=== PATIENT | male | born 1960 | race Hispanic/Latino ===

== ENCOUNTER 2018-12-07 10:29 | Emergency (ER) | payer MEDICAID ==
[2018-12-07] MEDS ORDERED: CEPHALEXIN 250 MG CAP ONE (11:57)
[2018-12-07] MEDS ORDERED: TETANUS & DIPHTHERIA TOX,ADULT 0.5 ML VIAL ONE (11:57)
--- NOTE | 2018-12-07 12:08 | RAD REPORT ---
EXAM DESCRIPTION: RAD - Hand Right 3 View - 12/07/2018 11:57 am CLINICAL HISTORY: possible bite;Pain COMPARISON: No comparisons FINDINGS: No fracture, dislocation or radiopaque foreign body seen. . Mild soft tissue swelling abou t the fingers. Scattered arthritic changes are seen.
--- NOTE | 2018-12-07 12:09 | RAD REPORT ---
EXAM DESCRIPTION: RAD - Knee Left 3 View - 12/07/2018 11:57 am CLINICAL HISTORY: PAIN Fall, knee pain COMPARISON: CHEST SINGLE VIEW dated 09/27/2008 FINDINGS: Chronic deformity of the patella is seen presumably related to remote trauma. This or some what limits assessment of the patella. Within this limitation, no acute fractures seen. No suprapatel lar joint effusion. If pain persists or progresses, MR imaging would be suggested.
--- NOTE | 2018-12-07 12:17 | EDPHYS ---
Physician Documentation [facility] Name: Justyna Siegel Age: 58 yrs Sex: Male : 1960 Arrival Date: 12/07/2018 Time: 10:34 Bed 13 Private MD: None, None ED Physician Andrei Ayala HPI: 12/07 12:00 This 58 yrs old Male presents to ER via Ambulatory with complaints of Fall snw Injury. 12:00 Details of fall: The patient fell from an upright position, knee gave out when he stood snw abruptly post something biting him on the left middle fingertip. Onset: The symptoms/episode began/occurred suddenly, 4 day(s) ago, and became persistent. Severity of symptoms: At their worst the symptoms were very mild, mild. It is unknown whether or not the patient has had similar symptoms in the past. It is unknown whether or not the patient has recently seen a physician. pt states when left knee gave out he fell against the picnic table. Historical: - Allergies: 10:51 No Known Allergies; ph - Home Meds: 10:51 None [Active]; ph - PSHx: 10:51 abdominal sx; Bowel resection; Knee surgery; ph - Immunization history:: Adult Immunizations unknown, Adult Immunizations up to date. - Social history:: Smoking status: Patient/guardian denies using tobacco, Patient uses street drugs, marijuana, Smoking status: Patient/guardian denies using tobacco. - Ebola Screening: : No symptoms or risks identified at this time. ROS: 11:58 Constitutional: Negative for fever, chills, and weight loss, Eyes: Negative for injury, snw pain, redness, and discharge, ENT: Negative for injury, pain, and discharge, Neck: Negative for injury, pain, and swelling, Cardiovascular: Negative for chest pain, palpitations, and edema, Respiratory: Negative for shortness of breath, cough, wheezing, and pleuritic chest pain, Back: Negative for injury and pain, : Negative for injury, bleeding, discharge, and swelling, Neuro: Negative for headache, weakness, numbness, tingling, and seizure, Psych: Negative for depression, anxiety, suicide ideation, homicidal ideation, and hallucinations. 11:58 Abdomen/GI: Positive for "lump at left upper abd". 11:58 MS/extremity: Positive for left knee pain and tendency to give out. 11:58 Skin: Positive for puncture, pt states [place] him on the right [place], requests tetanus immunization. Exam: 11:54 Constitutional: This is a well developed, well nourished patient who is awake, alert, snw and in no acute distress. Head/Face: Normocephalic, atraumatic. 11:54 Neck: Trachea midline, no thyromegaly or masses palpated, and no cervical lymphadenopathy. Supple, full range of motion without nuchal rigidity, or vertebral point tenderness. No Meningismus. Chest/axilla: Normal chest wall appearance and motion. Nontender with no deformity. No lesions are appreciated. Cardiovascular: Regular rate and rhythm with a normal S1 and S2. No gallops, murmurs, or rubs. Normal PMI, no JVD. No pulse deficits. Respiratory: Lungs have equal breath sounds bilaterally, clear to auscultation and percussion. No rales, rhonchi or wheezes noted. No increased work of breathing, no retractions or nasal flaring. 11:54 Back: No spinal tenderness. No costovertebral tenderness. Full range of motion. 11:54 Neuro: Awake and alert, GCS 15, oriented to person, place, time, and situation. Cranial nerves II-XII grossly intact. Motor strength 5/5 in all extremities. Sensory grossly intact. Cerebellar exam normal. Normal gait. 11:54 Eyes: Sclera: icterus. 11:54 Abdomen/GI: Inspection: scar(s), are noted in the left upper quadrant and right lower quadrant, Bowel sounds: normal, Palpation: multiple + easily reducible hernias across abdomen, no tenderness, no noted external ecchymosis or injury. 11:54 Musculoskeletal/extremity: Extremities: grossly normal except: noted in the palmar aspect of distal phalanx of right middle finger: bite, contusion, puncture, swelling, noted in the left knee: contusion, midline scarring, pt states it gives out, no noted injury, ROM: no acute changes, Circulation is intact in all extremities. 11:54 Skin: Appearance: Color: jaundiced, Temperature: normal temperature, Moisture: normal moisture. Vital Signs: 10:49 BP 163 / 78; Pulse 66; Resp 18; Temp 97.9; Pulse Ox 100% on R/A; Weight 52.62 kg; ph Height 5 ft. 2 in. (157.48 cm); Pain 5/10; 11:46 BP 110 / 90; Pulse 70; Resp 16; Pulse Ox 99% on R/A; aj 12:35 BP 118 / 82; Pulse 67; Resp 18; Temp 97.8; Pulse Ox 99% on R/A; ph 10:49 Body Mass Index 21.22 (52.62 kg, 157.48 cm) ph MDM: 10:59 Patient medically screened. snw 15:17 Data reviewed: vital signs, nurses notes. Data interpreted: Pulse oximetry: on room air snw is 99 %. Interpretation: normal. Counseling: I had a detailed discussion with the patient and/or guardian regarding: the historical points, exam findings, and any diagnostic results supporting the discharge/admit diagnosis, the presence of at least one elevated blood pressure reading (>120/80) during this emergency department visit, lab results, radiology results, the need for outpatient follow up, to return to the emergency department if symptoms worsen or persist or if there are any questions or concerns that arise at home. Special discussion: I have referred the patient to see his PCP for further evaluation of high blood pressure. Based on the history and exam findings, there is no indication for further emergent testing or inpatient evaluation. I discussed with the patient/guardian the need to see the primary care provider for further evaluation of the symptoms. 12/07 11:35 Order name: Hand Right 3 View XRAY; Complete Time: 12:12 snw 12/07 11:35 Order name: Knee Left 3 View XRAY; Complete Time: 12:12 snw Administered Medications: 11:45 Drug: Tetanus-Diphtheria Toxoid Adult 0.5 ml {Registered Nurse Practitioner: [employer]. Exp: aj 08/19/2020. Lot #: [id number]. } Route: IM; Site: right deltoid; 11:46 Drug: KeFLEX 500 mg Route: PO; aj Disposition: 19:01 Co-signature as Attending Physician, Andrei Ayala MD I agree with the assessment and kdr plan of care. Disposition: 12/07/18 12:16 Discharged to Home. Impression: Osteoarthritis of knee, Puncture wound without foreign body of finger without damage to nail. - Condition is Stable. - Discharge Instructions: Arthritis, Hernia, Adult, Fall Prevention in the Home, Puncture Wound, VIS, Tetanus, Diphtheria (Td) - CDC, Cryotherapy, Heat Therapy. - Prescriptions for Keflex 500 mg Oral Capsule - take 1 capsule by ORAL route every 8 hours for 10 days; 30 capsule. Diclofenac Sodium 75 mg Oral Tablet Sustained Release - take 1 tablet by ORAL route 2 times per day; 30 tablet. - Medication Reconciliation Form, Thank You Letter, Antibiotic Education, Prescription Opioid Use form. - Follow up: Private Physician; When: 2 - 3 days; Reason: Recheck today's complaints, Continuance of care, Re-evaluation by your physician. Follow up: Emergency Department; When: As needed; Reason: Worsening of condition. Signatures: Dispatcher [employer] Iliana Edmond, DARIANA RN Andrei Ryan MD MD [facility] Ofelia Woodward, CONSTRUCTION PROJECT MGR-C CONSTRUCTION PROJECT MGR-Csnw Lupe De La Paz RN RN ph Corrections: (The following items were deleted from the chart) 12:36 12:16 12/07/2018 12:16 Discharged to Home. Impression: Osteoarthritis of knee; Puncture ph wound without foreign body of finger without damage to nail. Condition is Stable. Forms are Medication Reconciliation Form, Thank You Letter, Antibiotic Education, Prescription Opioid Use. Follow up: Private Physician; When: 2 - 3 days; Reason: Recheck today's complaints, Continuance of care, Re-evaluation by your physician. Follow up: Emergency Department; When: As needed; Reason: Worsening of condition. snw
--- NOTE | 2018-12-07 12:17 | ER ---
Nurse's Notes [facility] Name: Justyna Siegel Age: 58 yrs Sex: Male : 1960 Arrival Date: 12/07/2018 Time: 10:34 Bed 13 Private MD: None, None Diagnosis: Osteoarthritis of knee;Puncture wound without foreign body of finger without damage to nail Presentation: 12/07 10:44 Presenting complaint: Presenting complaint: Patient states: Fell approx 2 days ago, ph states, " Something bit me on my R hand and when I jumped up my knee (L) gave out and I fell onto the table on my side." Pt c/o pain to L knee and hip and to L rib area, area of swelling noted to LUQ area, hx of extensive abdominal surgeries, denies head injury or LOC. 10:46 Care prior to arrival: None. Mechanism of Injury: Fall from standing position. Trauma ph event details: Injury occurred in the [facility], Injury occurred: in a public building. 10:46 Acuity: TYRONE 4 ph 10:46 Method Of Arrival: Ambulatory Trauma Activation: Not Applicable Physician: ED Physician; Name: ; Notified At: ; Arrived At: Physician: General Surgeon; Name: ; Notified At: ; Arrived At: Physician: Radiology; Name: ; Notified At: ; Arrived At: Physician: Respiratory; Name: ; Notified At: ; Arrived At: Physician: Lab; Name: ; Notified At: ; Arrived At: Historical: - Allergies: 10:51 No Known Allergies; ph - Home Meds: 10:51 None [Active]; ph - PSHx: 10:51 abdominal sx; Bowel resection; Knee surgery; ph - Immunization history:: Adult Immunizations unknown, Adult Immunizations up to date. - Social history:: Smoking status: Patient/guardian denies using tobacco, Patient uses street drugs, marijuana, Smoking status: Patient/guardian denies using tobacco. - Ebola Screening: : No symptoms or risks identified at this time. Screenin:49 Abuse screen: Denies threats or abuse. Denies injuries from another. Nutritional aj screening: No deficits noted. Tuberculosis screening: No symptoms or risk factors identified. Fall Risk None identified. Primary Survey: 10:51 NO uncontrolled hemorrhage observed. Breathing/Chest: Respiratory pattern: regular, aj Respiratory effort: spontaneous, unlabored, Breath sounds: clear, bilaterally. Chest inspection: symmetrical rise and fall of the chest. Circulation: Skin color: pink, Skin temperature: warm, dry. Disability Alert. Exposure/Environment: There is no evidence of uncontrolled external bleeding. 11:46 Reassessment Airway Airway Patent Breathing/Chest Respiratory pattern Circulation Color aj [place] Temperature Warm Dry Disability Alert. Assessment: 10:49 General: Appears in no apparent distress. comfortable, Behavior is calm, cooperative, aj appropriate for age. Pain: Complains of pain in anterior aspect of left lateral abdomen, left upper quadrant, left hip, dorsal aspect of distal phalanx of right middle finger and left knee. Neuro: Level of Consciousness is awake, alert, obeys commands, Oriented to person, place, time, situation, Appropriate for age. Respiratory: Airway is patent Respiratory effort is even, unlabored, Respiratory pattern is regular, symmetrical. Derm: Skin is intact, is healthy with good turgor, Skin is pink, warm \\T\\ dry. normal, Bruising that is dark purple, on dorsal aspect of distal phalanx of right middle finger. 12:34 Reassessment: Patient appears in no apparent distress at this time. Patient and/or ph family updated on plan of care and expected duration. Pain level reassessed. Patient is alert, oriented x 3, equal unlabored respirations, skin warm/dry/pink. Pt d/c home. Vital Signs: 10:49 BP 163 / 78; Pulse 66; Resp 18; Temp 97.9; Pulse Ox 100% on R/A; Weight 52.62 kg; ph Height 5 ft. 2 in. (157.48 cm); Pain 5/10; 11:46 BP 110 / 90; Pulse 70; Resp 16; Pulse Ox 99% on R/A; aj 12:35 BP 118 / 82; Pulse 67; Resp 18; Temp 97.8; Pulse Ox 99% on R/A; ph 10:49 Body Mass Index 21.22 (52.62 kg, 157.48 cm) ph ED Course: 10:34 Patient arrived in ED. dp 10:34 None, None is Private Physician. dp 10:46 Iliana Del Rio, RN is Primary Nurse. aj 10:49 Triage completed. ph 10:49 Patient has correct armband on for positive identification. aj 10:50 Ofelia Woodward FNP-C is PHCP. snw 10:50 Andrei Ayala MD is Attending Physician. snw 10:51 Arm band placed on Patient placed in an exam room, on a stretcher, on pulse oximetry. ph 11:58 Hand Right 3 View XRAY In Process Unspecified. EDMS 11:58 Knee Left 3 View XRAY In Process Unspecified. EDMS Administered Medications: 11:45 Drug: Tetanus-Diphtheria Toxoid Adult 0.5 ml {Supervisor Cd Area: [place]. Exp: aj 08/19/2020. Lot #: [id number]. } Route: IM; Site: right deltoid; 11:46 Drug: KeFLEX 500 mg Route: PO; aj Outcome: 12:16 Discharge ordered by . snw 12:35 Discharged to home ambulatory. ph 12:35 Condition: good 12:35 Discharge instructions given to patient, Instructed on discharge instructions, follow up and referral plans. medication usage, Demonstrated understanding of instructions, follow-up care, medications, Prescriptions given X 2. 12:36 Patient left the ED. ph Signatures: Dispatcher [employer] EDIliana Phillip RN RN Ofelia Reynoso FNP-C OUTSIDE SALES INSPECTOR-CsnLupe Art RN RN Vic Tristan Corrections: (The following items were deleted from the chart) 10:49 10:44 Presenting complaint: ph ph
== END 2018-12-07 12:36 | disposition home or self-care (01) ==
LOC: ER 10:29
DX: M17.12 Unilateral primary osteoarthritis, left knee (principal); S61.232A Puncture wound without foreign body of right middle finger without damage to nail, initial encounter; W19.XXXA Unspecified fall, initial encounter; Y93.89 Activity, other specified; Y92.89 Other specified places as the place of occurrence of the external cause; Z23 Encounter for immunization
CPT/HCPCS: 90471; 90714; 99284

== ENCOUNTER 2019-03-28 10:14 | Emergency (ER) | payer MEDICAID ==
--- NOTE | 2019-03-28 11:35 | RAD REPORT ---
EXAM DESCRIPTION: RAD - Pelvis - 03/28/2019 11:30 am CLINICAL HISTORY: Fall, pelvis and left hip pain COMPARISON: September 2008 TECHNIQUE: AP imaging of the pelvis was obtained. FINDINGS: No fracture of the bony pelvis. No fracture, dislocation or other acute hip joint finding. No significant SI joint findings. No soft tissue abnormality. IMPRESSION: Negative pelvis for acute or significant findings.
--- NOTE | 2019-03-28 11:50 | RAD REPORT ---
EXAM DESCRIPTION: RAD - Hip Left 2 View - 03/28/2019 11:28 am CLINICAL HISTORY: Fall, left hip pain COMPARISON: None. FINDINGS: Portable AP and frog-leg views were obtained. There is no fracture or dislocation. No acut e or destructive bony process seen. Degenerative changes minimal. No AVN or focal femoral head abnor mality. No soft tissue abnormality. IMPRESSION: Negative left hip examination for acute or significant findings.
--- NOTE | 2019-03-28 11:58 | ER ---
Nurse's Notes [facility] Name: Justyna Siegel Age: 59 yrs Sex: Male : 1960 Arrival Date: 03/28/2019 Time: 10:18 Bed 8 Private MD: Diagnosis: Pain in left hip Presentation: 03/28 10:39 Presenting complaint: Patient states: "my left knee keeps on buckling and a few days aa5 ago and I landed on my left hip and my left hip has been hurting since then". Transition of care: patient was not received from another setting of care. Onset of symptoms was February 2019. Risk Assessment: Do you want to hurt yourself or someone else? Patient reports no desire to harm self or others. Initial Sepsis Screen: Does the patient meet any 2 criteria? No. Patient's initial sepsis screen is negative. Does the patient have a suspected source of infection? No. Patient's initial sepsis screen is negative. Care prior to arrival: None. 10:39 Acuity: TYRONE 4 aa5 10:39 Method Of Arrival: Ambulatory aa5 Historical: - Allergies: 10:40 Aspirin; aa5 - PMHx: 10:41 None; aa5 - PSHx: 10:40 abdominal sx; Bowel resection; Knee surgery; aa5 - Immunization history:: Flu vaccine is not up to date. - Social history:: Smoking status: Patient/guardian denies using tobacco. - Ebola Screening: : No symptoms or risks identified at this time. Screenin:00 Abuse screen: Denies threats or abuse. Denies injuries from another. Nutritional ph screening: No deficits noted. Tuberculosis screening: No symptoms or risk factors identified. Fall Risk None identified. Assessment: 11:00 General: Appears in no apparent distress. comfortable, slender, Behavior is calm, ph cooperative, appropriate for age. Pain: Complains of pain in left hip. Neuro: Level of Consciousness is awake, alert, obeys commands, Oriented to person, place, time, situation. Cardiovascular: Capillary refill < 3 seconds in bilateral fingers. Respiratory: Airway is patent Respiratory effort is even, unlabored, Respiratory pattern is regular, symmetrical. Derm: Skin is intact, is healthy with good turgor, Skin is pink, warm \\T\\ dry. Musculoskeletal: Circulation, motion, and sensation intact. Range of motion: intact in all extremities, Swelling absent. Vital Signs: 10:41 BP 144 / 74; Pulse 68; Resp 16 S; Temp 99.0(TE); Pulse Ox 100% on R/A; Weight 58.97 kg aa5 (R); Height 5 ft. 2 in. (157.48 cm) (R); Pain 6/10; 10:41 Body Mass Index 23.78 (58.97 kg, 157.48 cm) aa5 ED Course: 10:18 Patient arrived in ED. mr 10:39 Arm band placed on. aa5 10:40 Triage completed. aa5 10:44 Lupe De La Paz, RN is Primary Nurse. ph 10:44 Milagro Adkins FNP-C [facility]. kb 10:44 Glen Madrid MD is Attending Physician. kb 11:00 Patient has correct armband on for positive identification. Placed in gown. Bed in low ph position. Call light in reach. Side rails up X 1. 11:29 Hip Left 2 View XRAY In Process Unspecified. EDMS 11:29 Pelvis XRAY In Process Unspecified. EDMS 12:00 No provider procedures requiring assistance completed. Patient did not have IV access ph during this emergency room visit. Administered Medications: No medications were administered Outcome: 11:57 Discharge ordered by . kb 12:09 Patient left the ED. ph 12:09 Discharged to home ambulatory. ph 12:09 Condition: good 12:09 Discharge instructions given to patient, Instructed on discharge instructions, follow up and referral plans. Demonstrated understanding of instructions, follow-up care. Signatures: Dispatcher [employer] EDSD Milagro Adkins FNP-C FNP-Ckb Sunni FishmanSujata, RN RN aa Lupe De La Paz, RN RN ph
--- NOTE | 2019-03-28 11:58 | EDPHYS ---
Physician Documentation [facility] Name: Justyna Siegel Age: 59 yrs Sex: Male : 1960 Arrival Date: 03/28/2019 Time: 10:18 Bed 8 Private MD: ED Physician Glen Madrid HPI: 03/28 11:21 This 59 yrs old Male presents to ER via Ambulatory with complaints of Hip Pain.kb 11:21 The patient or guardian reports pain. that occurred at home, sustained from a fall. The kb complaints affect the left hip. Onset: The symptoms/episode began/occurred 3 day(s) ago. Modifying factors: The symptoms are alleviated by nothing, the symptoms are aggravated by any movement. Associated signs and symptoms: Loss of consciousness: the patient experienced no loss of consciousness, Pertinent positives: None. Severity of symptoms: At their worst the symptoms were moderate, in the emergency department the symptoms are unchanged. The patient has not experienced similar symptoms in the past. The patient has not recently seen a physician. Pt reports his left knee buckled a few days ago causing him to fall onto left hip. Reports pain with ambulation since then. . Historical: - Allergies: 10:40 Aspirin; aa5 - PMHx: 10:41 None; aa5 - PSHx: 10:40 abdominal sx; Bowel resection; Knee surgery; aa5 - Immunization history:: Flu vaccine is not up to date. - Social history:: Smoking status: Patient/guardian denies using tobacco. - Ebola Screening: : No symptoms or risks identified at this time. ROS: 11:19 Constitutional: Negative for fever, chills, and weight loss, Neck: Negative for injury, kb pain, and swelling, Cardiovascular: Negative for chest pain, palpitations, and edema, Respiratory: Negative for shortness of breath, cough, wheezing, and pleuritic chest pain, Abdomen/GI: Negative for abdominal pain, nausea, vomiting, diarrhea, and constipation, Back: Negative for injury and pain, Skin: Negative for injury, rash, and discoloration, Neuro: Negative for headache, weakness, numbness, tingling, and seizure. 11:19 MS/extremity: Positive for pain, of the left hip. Exam: 11:19 Constitutional: This is a well developed, well nourished patient who is awake, alert, kb and in no acute distress. Head/Face: Normocephalic, atraumatic. ENT: Nares patent. No nasal discharge, no septal abnormalities noted. Tympanic membranes are normal and external auditory canals are clear. Oropharynx with no redness, swelling, or masses, exudates, or evidence of obstruction, uvula midline. Mucous membranes moist. Neck: Trachea midline, no thyromegaly or masses palpated, and no cervical lymphadenopathy. Supple, full range of motion without nuchal rigidity, or vertebral point tenderness. No Meningismus. Chest/axilla: Normal chest wall appearance and motion. Nontender with no deformity. No lesions are appreciated. Cardiovascular: Regular rate and rhythm with a normal S1 and S2. No gallops, murmurs, or rubs. Normal PMI, no JVD. No pulse deficits. Respiratory: Lungs have equal breath sounds bilaterally, clear to auscultation and percussion. No rales, rhonchi or wheezes noted. No increased work of breathing, no retractions or nasal flaring. Abdomen/GI: Soft, non-tender, with normal bowel sounds. No distension or tympany. No guarding or rebound. No evidence of tenderness throughout. Back: No spinal tenderness. No costovertebral tenderness. Full range of motion. Skin: Warm, dry with normal turgor. Normal color with no rashes, no lesions, and no evidence of cellulitis. Neuro: Awake and alert, GCS 15, oriented to person, place, time, and situation. Cranial nerves II-XII grossly intact. Motor strength 5/5 in all extremities. Sensory grossly intact. Cerebellar exam normal. Normal gait. 11:19 Musculoskeletal/extremity: Extremities: grossly normal except: noted in the left hip: pain, ROM: limited passive range of motion due to pain, in the left hip, Circulation is intact in all extremities. Sensation intact. Weight bearing: able to fully bear weight, without difficulty. Vital Signs: 10:41 BP 144 / 74; Pulse 68; Resp 16 S; Temp 99.0(TE); Pulse Ox 100% on R/A; Weight 58.97 kg aa5 (R); Height 5 ft. 2 in. (157.48 cm) (R); Pain 6/10; 10:41 Body Mass Index 23.78 (58.97 kg, 157.48 cm) aa5 MDM: 10:46 Patient medically screened. kb 11:19 Data reviewed: vital signs, nurses notes. Data interpreted: Pulse oximetry: on room air kb is 100 %. Interpretation: normal. 11:57 Counseling: I had a detailed discussion with the patient and/or guardian regarding: the kb historical points, exam findings, and any diagnostic results supporting the discharge/admit diagnosis, radiology results, the need for outpatient follow up, a family practitioner, to return to the emergency department if symptoms worsen or persist or if there are any questions or concerns that arise at home. 03/28 10:48 Order name: Hip Left 2 View XRAY; Complete Time: 11:54 kb 03/28 10:48 Order name: Pelvis XRAY; Complete Time: 11:39 kb Administered Medications: No medications were administered Disposition: 03/29 07:23 Co-signature as Attending Physician, Glen Madrid MD I agree with the assessment and kp plan of care. Disposition: 03/28/19 11:57 Discharged to Home. Impression: Pain in left hip. - Condition is Stable. - Discharge Instructions: Hip Pain. - Medication Reconciliation Form, Thank You Letter, Antibiotic Education, Prescription Opioid Use form. - Follow up: Emergency Department; When: As needed; Reason: Worsening of condition. Follow up: Private Physician; When: 2 - 3 days; Reason: Recheck today's complaints, Continuance of care, Re-evaluation by your physician. Signatures: Dispatcher [employer] EDSD Milagro Adkins, STRAIGHT LINE EDGER-C STRAIGHT LINE EDGER-Glen Barnett MD MD cha Calderon, Audri RN RN aa5 Lupe De La Paz RN RN ph Corrections: (The following items were deleted from the chart) 03/28 12:09 11:57 03/28/2019 11:57 Discharged to Home. Impression: Pain in left hip. Condition is ph Stable. Forms are Medication Reconciliation Form, Thank You Letter, Antibiotic Education, Prescription Opioid Use. Follow up: Emergency Department; When: As needed; Reason: Worsening of condition. Follow up: Private Physician; When: 2 - 3 days; Reason: Recheck today's complaints, Continuance of care, Re-evaluation by your physician. kb
[2019-03-28 12:14] VITALS: BP 144/74; TEMP 99; O2SAT 100
== END 2019-03-28 12:09 | disposition home or self-care (01) ==
LOC: ER 10:14
DX: M25.552 Pain in left hip (principal)
CPT/HCPCS: 72170; 99283

== ENCOUNTER 2023-03-29 14:14 | Emergency (ER) | payer OTHER ==
--- OUTSIDE RECORDS SUMMARY | 2023-03-29 14:23 | XMS REPORT | Continuity of Care Document ---
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 NORepinephr 2022-0 2022- No .05ug/k 0.05-0.5 Univers ine 4 mg in 01-13-18 g/min mcg/kg/min ity of 0.9% NaCl 02:33: 00:45 ?55.3 kg [place] 250 mL 15 :43 (10.3688-1 Medical infusion 03.6875 Branch RTU mL/hr, rounded to 10.37-103. 69 mL/hr), IV Infusion, TITRATE, MAP Goal > or = 65 mmHg, Starting on Tue01/12/23 at 2133, For 24 hours
I nitiate titration at 0.05 mcg/kg/min . &nb sp;Increas e by 0.01 mcg/kg/min every 30 seconds to 5 minutes as needed to reach and maintain goal blood pressure.& nbsp;&nbsp ;Maximum dose = 0.5 mcg/kg/min . &nb sp;If goal not maintained at maximum allowed dose, contact prescriber . &nb sp;Adminis ter only one peripheral intravenou s vasopresso r at a time.
albumin 2022- No 1g/kg 55.3 g (1 Uni vers (PLASBUMIN) 01-13 g/kg ?55.3 i ty of 25 % 02:15: 06:00 kg), IV [place] injection 00 :00 Infusion, Medic al 55.3 g ONCE, 1 Branch dose, On Tue01/12/23 at 2115, 250 mL
Elda cation: HEPATORENA L SYNDROME (TREATMENT )
Comme nts: 1. Albumin + octreotide and midodrine< br>Comm ents: 2. Albumin + norepineph rine for patients in the ICU octreotide 2022- No 100ug 100 mcg, U nivers (SANDOSTATI 01-13 Subcutaneo i ty of N) 02:00: 15:20 us, TID, [place] injection 00 :11 First dose Medi rina 100 mcg on Tue Branch 01/12/23 at 2100, Until Discontinu ed, Routine
Indicatio n: Hepatorena l Syndrome pantoprazol 2022- No 40mg 40 mg, Uni vers e 01-13 Slow IV ity of (PROTONIX) 01:45: 01:25 Push, [place] injection 00 :00 Q24H, 3 Medical 40 mg doses, Branch First dose on Tue01/12/23 at 2045, Last dose on Tue01/14/23 at 2045 metroNIDAZO 2022- No 500mg 500 mg, IV Univers LE in NaCl 01-1217 Infusion, ity of (iso-os) 20:45: 08:42 Q12H ABX, [place] as (FLAGYL 00 :25 14 doses, Medical I.V.) RTU First dose Bran ch IV infusion on Tue 500 mg 01/12/23 at 1545, Last dose on Tue01/19/23 at 0345, Administer over 60 Minutes, 100 mL
Reas on for Anti-Infec tive: Empiric Therapy for Suspected Infection< br>Empiric Therapy Site: Abdominal< br>Duratio n of therapy: 72 hours NaCl 0.9% 2022- No 30mL/kg at 999 Un franck (NS) bolus 01-12 mL/hr, ity of infusion 20:30: 22:00 1,659 mL [place] 1,659 mL 00 :00 (30 mL/kg Medica l ?55.3 kg), Branch IV Piggyback, ONCE, 1 dose, On Tue01/12/23 at 1530, STAT piperacilli 2022- No 3.375g 3.375 g, Univers n-tazobacta 01-12 IV ity of m (ZOSYN) 20:30: 21:00 [place]back, [place] 3.375 g in 00 :00 ONCE, 1 Medica l NaCl 0.9% dose, On Branch (NS) 100 mL Wed MINI-BAG 01/12/23 at 1530, Administer over 30 Minutes, 100 mL
Reas on for Anti-Infec tive: Empiric Therapy for Suspected Infection< br>Empiric Therapy Site: Abdominal< br>Duratio n of therapy: 72 hours ceFEPIme 2022- No 1000mg 1,000 mg, U nivers (MAXIPIME) 01-12 IV ity of 1,000 mg in 19:15: 19:38 Piggyback, [place] NaCl 0.9% 00 :00 ONCE, 1 Medical (NS) 100 mL dose, On Bran ch MINI-BAG Tue01/12/23 at 1415, Administer over 30 Minutes, 100 mL
Reas on for Anti-Infec tive: Empiric Therapy for Suspected Infection< br>Empiric Therapy Site: Abdominal< br>Duratio n of therapy: 72 hours iopamidol 2022- No [id number] 78mL 78 mL, Univers (ISOVUE 01-12 Intravenou ity o f 370-500 mL) 19:15: 19:15 s, ONCE, 1 [place] injection 00 :00 dose, On Medica l 78 mL Wed Branch 01/12/23 at 1415, Routine Vancomycin 2022- No 15mg/kg 750 mg U nivers 750 mg in 01-12 (rounded ity o f NaCl 0.9% 19:15: 20:32 from 829.5 [place] (NS) 250 mL 00 :00 mg = 15 Medic al VIAL-MATE mg/kg Branch ?55.3 kg), IV Piggyback, ONCE, 1 dose, On Tue01/12/23 at 1415, Administer over 60 Minutes, 250 mL
Reas on for Anti-Infec tive: Empiric Therapy for Suspected Infection< br>Empiric Therapy Site: Abdominal< br>Duratio n of therapy: 72 hours potassium 2022- No 10meq 10 mEq, IV Univers chloride in 01-12 Piggyback, i ty of water 10 16:15: 16:45 ONCE, 1 [place] mEq/100 mL 00 :00 dose, On Medic al RTU 10 mEq Wed Branch 01/12/23 at 1115, Administer over 60 Minutes, 100 mL KCL 2022- No 40meq 40 mEq, Univers (KLOR-CON 01-12 Oral, ity of M20) tablet 15:30: 15:34 ONCE, 1 [place] 40 mEq 00 :00 dose, On Medical Wed Branch 01/12/23 at 1030, [place] furosemide 2022- No 40mg 40 mg, IV U nivers (LASIX) 01-12 Push, ity of injection 14:45: 15:01 ONCE, 1 [place] 40 mg 00 :00 dose, On [facility] Branch 01/12/23 at 0945, [place] meloxicam Yes 15mg Take 1 Univer s (MOBIC) 15 1-05 tablet by ity of mg tablet 00:00: mouth [place] 00 daily. [facility] meloxicam Yes 15mg Take 1 Univer s (MOBIC) 15 1-05 tablet by ity of mg tablet 00:00: mouth [place] 00 daily. [facility] meloxicam No 15mg Take 1 Unive rs (MOBIC) 15 1-05 - tablet by ity of mg tablet 00:00: 00:00 mouth [place] 00 :00 daily. [facility] Immunizations Ordered Filled Date Status Comments Source Immunization Name Immunization Name Pneumococcal 20 2023-01-23 Completed Universit y of Conjugate, PCV20 00:00:00 [facility] [place] [facility] (Prevnar 20) Branch HEPLISAV HEP B, 2023-01-23 Completed Universit y of ADULT 2 DOSE, IM 00:00:00 [facility] [place] [facility] Branch Pneumococcal 20 2023-01-23 Completed Universit y of Conjugate, PCV20 00:00:00 [facility] [place] [facility] (Prevnar 20) Branch HEPLISAV HEP B, 2023-01-23 Completed Universit y of ADULT 2 DOSE, IM 00:00:00 [facility] [place] [facility] Branch Pneumococcal 20 2023-01-23 Completed Universit y of Conjugate, PCV20 00:00:00 [facility] [place] [facility] (Prevnar 20) Branch HEPLISAV HEP B, 2023-01-23 Completed Universit y of ADULT 2 DOSE, IM 00:00:00 [facility] Human Rabies 2020-07-12 Completed University o f Vaccine From Human 00:00:[address] [facility] Diploid Cell Branch Culture (IMOVAX) Human Rabies 2020-07-12 Completed University o f Vaccine From Human 00:00:00 [facility] Diploid Cell Branch Culture (IMOVAX) Human Rabies 2020-07-12 Completed University o f Vaccine From Human 00:00:00 [facility] Diploid Cell Branch Culture (IMOVAX) Human Rabies 2020-07-12 Completed University o f Vaccine From Human 00:00:00 [facility] Diploid Cell Branch Culture (IMOVAX) Human Rabies 2020-07-12 Completed University o f Vaccine From Human 00:00:00 [facility] Cell Branch Culture (IMOVAX) Human Rabies 2020-07-05 Completed University o f Vaccine From 00:00:00 [place] [facility] Chicken Fibroblast Branch Culture (RABAVERT) Human Rabies 2020-07-05 Completed University o f Vaccine From 00:00:00 [place] [facility] Chicken Fibroblast Branch Culture (RABAVERT) Human Rabies 2020-07-05 Completed University o f Vaccine From 00:00:00 [place] [facility] Chicken Fibroblast Branch Culture (RABAVERT) Human Rabies 2020-07-05 Completed University o f Vaccine From 00:00:00 [place] [facility] Chicken Fibroblast Branch Culture (RABAVERT) Human Rabies 2020-07-05 Completed University o f Vaccine From 00:00:00 [place] [facility] Chicken Fibroblast Branch Culture (RABAVERT) Human Rabies 2020-07-01 Completed University o f Vaccine From 00:00:00 [place] [facility] Chicken Fibroblast Branch Culture (RABAVERT) Human Rabies 2020-07-01 Completed University o f Vaccine From 00:00:00 [place] [facility] Chicken Fibroblast Branch Culture (RABAVERT) Human Rabies 2020-07-01 Completed University o f Vaccine From 00:00:00 [place] [facility] Chicken Fibroblast Branch Culture (RABAVERT) Human Rabies 2020-07-01 Completed University o f Vaccine From 00:00:00 [place] [facility] Chicken Fibroblast Branch Culture (RABAVERT) Human Rabies 2020-07-01 Completed University o f Vaccine From 00:00:00 [place] [facility] Chicken Fibroblast Branch Culture (RABAVERT) Human Rabies 2020-06-24 Completed University o f Vaccine From 00:00:00 [place] [facility] Chicken Fibroblast Branch Culture (RABAVERT) Human Rabies 2020-06-24 Completed University o f Vaccine From 00:00:00 [place] [facility] Chicken Fibroblast Branch Culture (RABAVERT) Human Rabies 2020-06-24 Completed University o f Vaccine From 00:00:00 [place] [facility] Chicken Fibroblast Branch Culture (RABAVERT) Human Rabies 2020-06-24 Completed University o f Vaccine From 00:00:00 [place] [facility] Chicken Fibroblast Branch Culture (RABAVERT) Human Rabies 2020-06-24 Completed University o f Vaccine From 00:00:00 [place] [facility] Chicken Fibroblast Branch Culture (RABAVERT) TD, NOS 2017-05-03 Completed University of 00:00:00 [facility] [place] [facility] TD, NOS 2017-05-03 Completed University of 00:00:00 [facility] [place] [facility] TD, NOS 2017-05-03 Completed University of 00:00:00 [facility] Branch TD, NOS 2017-05-03 Completed University of 00:00:00 [facility] [place] [facility] TD, NOS 2017-05-03 Completed University of 00:00:00 [facility] [place] [facility] Influenza Virus 2015-04-16 Completed Universit y of Vaccine Quad ID 00:00:00 [facility] ical 18-64 YRS Branch Influenza Virus 2015-04-16 Completed Universit y of Vaccine Quad ID 00:00:00 [place] [facility] ical 18-64 YRS Branch Influenza Virus 2015-04-16 Completed Universit y of Vaccine Quad ID 00:00:00 [facility] ical 18-64 YRS Branch Influenza Virus 2015-04-16 Completed Universit y of Vaccine Quad ID 00:00:00 [facility] ical 18-64 YRS Branch Influenza Virus 2015-04-16 Completed Universit y of Vaccine Quad ID 00:00:00 [facility] [age] YRS Branch Hep B, Adol or Pedi 2014-06-12 Completed Unive rsity of Dosage 00:00:00 [facility] Branch Hep B, Adol or Pedi 2014-06-12 Completed Unive rsity of Dosage 00:00:00 [facility] Branch Hep B, Adol or Pedi 2014-06-12 Completed Unive rsity of Dosage 00:00:00 [facility] Branch Hep B, Adol or Pedi 2014-06-12 Completed Unive rsity of Dosage 00:00:00 [facility] Branch Hep B, Adol or Pedi 2014-06-12 Completed Unive rsity of Dosage 00:00:00 [facility] Branch Hep B, Adol or Pedi 2014-04-03 Completed Unive rsity of Dosage 00:00:00 [facility] Branch Hep B, Adol or Pedi 2014-04-03 Completed Unive rsity of Dosage 00:00:00 [facility] Branch Hep B, Adol or Pedi 2014-04-03 Completed Unive rsity of Dosage 00:00:00 [facility] Branch Hep B, Adol or Pedi 2014-04-03 Completed Unive rsity of Dosage 00:00:00 [facility] Branch Hep B, Adol or Pedi 2014-04-03 Completed Unive rsity of Dosage 00:00:00 [facility] [place] [facility] Hep B, Adol or Pedi Unknown Completed Unive rsity of Dosage [facility] [place] [facility] Hep B, Adol or Pedi Unknown Completed Unive rsity of Dosage [facility] [place] [facility] Influenza Virus Unknown Completed Universit y of Vaccine Quad ID [facility] 18-64 YRS Branch TD, NOS Unknown Completed [facility] Human Rabies Unknown Completed University o f Vaccine From [facility] Chicken Fibroblast Branch Culture (RABAVERT) Human Rabies Unknown Completed University o f Vaccine From [facility] Chicken Fibroblast Branch Culture (RABAVERT) Human Rabies Unknown Completed University o f Vaccine From [facility] Chicken Fibroblast Branch Culture (RABAVERT) Human Rabies Unknown Completed University o f Vaccine From [facility] Diploid Cell Branch Culture (IMOVAX) Pneumococcal 20 Unknown Completed Universit y of Conjugate, PCV20 [facility] dical (Prevnar 20) Branch HEPLISAV HEP B, Unknown Completed Universit y of ADULT 2 DOSE, IM [facility] dical Branch Hep B, Adol or Pedi Unknown Completed Unive rsity of Dosage [facility] [place] [facility] Hep B, Adol or Pedi Unknown Completed Unive rsity of Dosage [facility] [place] [facility] Influenza Virus Unknown Completed Universit y of Vaccine Quad ID [facility] 18-64 YRS Branch TD, NOS Unknown Completed [facility] Human Rabies Unknown Completed University o f Vaccine From [facility] Chicken Fibroblast Branch Culture (RABAVERT) Human Rabies Unknown Completed University o f Vaccine From [facility] Chicken Fibroblast Branch Culture (RABAVERT) Human Rabies Unknown Completed University o f Vaccine From [facility] Chicken Fibroblast Branch Culture (RABAVERT) Human Rabies Unknown Completed University o f Vaccine From Human [facility] Diploid Cell Branch Culture (IMOVAX) Pneumococcal 20 Unknown Completed Universit y of Conjugate, PCV20 [facility] dical (Prevnar 20) Branch HEPLISAV HEP B, Unknown Completed Universit y of ADULT 2 DOSE, IM [facility] dical Branch Hep B, Adol or Pedi Unknown Completed Unive rsity of Dosage [facility] [place] [facility] Hep B, Adol or Pedi Unknown Completed Unive rsity of Dosage [facility] [place] [facility] Influenza Virus Unknown Completed Universit y of Vaccine Quad ID [facility] 18-64 YRS Branch TD, NOS Unknown Completed [facility] Human Rabies Unknown Completed University o f Vaccine From [facility] Chicken Fibroblast Branch Culture (RABAVERT) Human Rabies Unknown Completed University o f Vaccine From [facility] Chicken Fibroblast Branch Culture (RABAVERT) Human Rabies Unknown Completed University o f Vaccine From [facility] [place] [facility] Fibroblast Branch Culture (RABAVERT) Human Rabies Unknown Completed University o f Vaccine From Human [facility] Diploid Cell Branch Culture (IMOVAX) Pneumococcal 20 Unknown Completed Universit y of Conjugate, PCV20 [facility] dical (Prevnar 20) Branch HEPLISAV HEP B, Unknown Completed Universit y of ADULT 2 DOSE, IM [facility] dical Branch Hep B, Adol or Pedi Unknown Completed Unive rsity of Dosage [facility] [place] [facility] Hep B, Adol or Pedi Unknown Completed Unive rsity of Dosage [facility] [place] [facility] Influenza Virus Unknown Completed Universit y of Vaccine Quad ID [facility] 18-64 YRS Branch TD, NOS Unknown Completed [facility] Human Rabies Unknown Completed University o f Vaccine From [facility] [place] [facility] Fibroblast Branch Culture (RABAVERT) Human Rabies Unknown Completed University o f Vaccine From [facility] [place] [facility] Fibroblast Branch Culture (RABAVERT) Human Rabies Unknown Completed University o f Vaccine From [facility] [place] [facility] Fibroblast Branch Culture (RABAVERT) Human Rabies Unknown Completed University o f Vaccine From Human [facility] Cell Branch Culture (IMOVAX) Pneumococcal 20 Unknown Completed Universit y of Conjugate, PCV20 [facility] dical (Prevnar 20) Branch HEPLISAV HEP B, Unknown Completed Universit y of ADULT 2 DOSE, IM [facility] dical Branch Hep B, Adol or Pedi Unknown Completed Unive rsity of Dosage [facility] [place] [facility] Hep B, Adol or Pedi Unknown Completed Unive rsity of Dosage [facility] [place] [facility] Influenza Virus Unknown Completed Universit y of Vaccine Quad ID [facility] 18-64 YRS Branch TD, NOS Unknown Completed [facility] Human Rabies Unknown Completed University o f Vaccine From [facility] Chicken Fibroblast Branch Culture (RABAVERT) Human Rabies Unknown Completed University o f Vaccine From [facility] Chicken Fibroblast Branch Culture (RABAVERT) Human Rabies Unknown Completed University o f Vaccine From [facility] [place] [facility] Fibroblast Branch Culture (RABAVERT) Human Rabies Unknown Completed University o f Vaccine From Human [facility] Diploid Cell Branch Culture (IMOVAX) Pneumococcal 20 Unknown Completed Universit y of Conjugate, PCV20 [facility] dical (Prevnar 20) Branch HEPLISAV HEP B, Unknown Completed Universit y of ADULT 2 DOSE, IM [facility] dical Branch Hep B, Adol or Pedi Unknown Completed Unive rsity of Dosage [facility] [place] [facility] Hep B, Adol or Pedi Unknown Completed Unive rsity of Dosage [facility] [place] [facility] Influenza Virus Unknown Completed Universit y of Vaccine Quad ID [facility] 18-64 YRS Branch TD, NOS Unknown Completed [facility] Human Rabies Unknown Completed University o f Vaccine From [facility] Chicken Fibroblast Branch Culture (RABAVERT) Human Rabies Unknown Completed University o f Vaccine From [facility] Chicken Fibroblast Branch Culture (RABAVERT) Human Rabies Unknown Completed University o f Vaccine From [facility] Chicken Fibroblast Branch Culture (RABAVERT) Human Rabies Unknown Completed University o f Vaccine From [facility] Diploid Cell Branch Culture (IMOVAX) Pneumococcal 20 Unknown Completed Universit y of Conjugate, PCV20 [facility] dical (Prevnar 20) Branch HEPLISAV HEP B, Unknown Completed Universit y of ADULT 2 DOSE, IM [facility] Hep B, Adol or Pedi Unknown Completed Unive rsity of Dosage [facility] [place] [facility] Hep B, Adol or Pedi Unknown Completed Unive rsity of Dosage [facility] [place] [facility] Influenza Virus Unknown Completed Universit y of Vaccine Quad ID [facility] 18-64 YRS Branch TD, NOS Unknown Completed [facility] Human Rabies Unknown Completed University o f Vaccine From [facility] Chicken Fibroblast Branch Culture (RABAVERT) Human Rabies Unknown Completed University o f Vaccine From [facility] Chicken Fibroblast Branch Culture (RABAVERT) Human Rabies Unknown Completed University o f Vaccine From [facility] Chicken Fibroblast Branch Culture (RABAVERT) Human Rabies Unknown Completed University o f Vaccine From [facility] Diploid Cell Branch Culture (IMOVAX) Pneumococcal 20 Unknown Completed Universit y of Conjugate, PCV20 [facility] dical (Prevnar 20) Branch HEPLISAV HEP B, Unknown Completed Universit y of ADULT 2 DOSE, IM [facility] dical Branch Vital Signs Vital Name Observation Time Observation Value Comments Source Systolic blood 2023-03-07 18:19:00 123 mm[Hg] Univer sity of [facility] Diastolic blood 2023-03-07 18:19:00 69 mm[Hg] Unive rsity of [facility] Heart rate 2023-03-07 18:19:00 87 /min [facility] [place] [facility] Body temperature 2023-03-07 18:19:00 37.11 Agustina Univ ersity of [place] [facility] Respiratory rate 2023-03-07 18:19:00 18 /min Univ ersity [facility] [place] [facility] Body height 2023-03-07 18:19:00 157.5 cm Universi ty [facility] [place] [facility] Body weight 2023-03-07 18:19:00 52.436 kg [facility]i [facility] [place] [facility] BMI 2023-03-07 18:19:00 21.14 kg/m2 [facility]i [facility] [place] [facility] Oxygen saturation in 2023-03-07 18:19:00 100 /min University of Arterial blood by [facility] Pulse oximetry Branch Systolic blood 2023-02-25 16:29:00 99 mm[Hg] Univer sity of pressure [place] [facility] Diastolic blood 2023-02-25 16:29:00 52 mm[Hg] Unive rsity of pressure [place] [facility] Heart rate 2023-02-25 16:29:00 75 /min [facility]i ty [facility] [place] [facility] Body temperature 2023-02-25 16:29:00 36.89 [place] Univ ersity [facility] [place] [facility] Respiratory rate 2023-02-25 16:29:00 17 /min Univ ersity of [place] [facility] Oxygen saturation in 2023-02-25 16:29:00 99 /min University of Arterial blood by [facility] Pulse oximetry Branch Body weight 2023-02-25 09:19:00 48.988 kg Universi ty [facility] [place] [facility] BMI 2023-02-25 09:19:00 19.75 kg/m2 [facility] [place] [facility] Body height 2023-02-24 21:10:00 157.5 cm Universi ty [facility] [place] [facility] Systolic blood 2023-02-24 14:48:00 98 mm[Hg] Univer sity of pressure [place] [facility] Diastolic blood 2023-02-24 14:48:00 63 mm[Hg] Unive rsity of pressure [place] [facility] Heart rate 2023-02-24 14:48:00 75 /min [facility]i ty [facility] [place] [facility] Body temperature 2023-02-24 14:48:00 36.11 [place] Univ ers[facility] [place] [facility] Respiratory rate 2023-02-24 14:48:00 19 /min Univ ers[facility] [place] [facility] Body height 2023-02-24 14:48:00 157.5 cm Universi [facility] [place] [facility] Body weight 2023-02-24 14:48:00 44.906 kg [facility]i ty [facility] [place] [facility] BMI 2023-02-24 14:48:00 18.11 kg/m2 [facility]i ty [facility] [place] [facility] Oxygen saturation in 2023-02-24 14:48:00 99 /min University of Arterial blood by [place] [facility] Pulse oximetry Branch Systolic blood 2023-01-23 17:14:00 95 mm[Hg] Univer sity of pressure [place] [facility] Diastolic blood 2023-01-23 17:14:00 64 mm[Hg] Unive rsity of pressure [place] [facility] Heart rate 2023-01-23 17:14:00 87 /min [facility] [place] [facility] Body temperature 2023-01-23 17:14:00 36.78 [place] Univ [facility] [place] [facility] Respiratory rate 2023-01-23 17:14:00 18 /min Univ ersity [facility] [place] [facility] Oxygen saturation in 2023-01-23 17:14:00 98 /min University of Arterial blood by [place] [employer] rina Pulse oximetry Branch Body height 2023-01-18 04:23:00 157.5 cm [facility]i [facility] [place] [facility] Body weight 2023-01-18 04:23:00 55.339 kg [facility]i [facility] [place] [facility] BMI 2023-01-18 04:23:00 22.31 kg/m2 [facility] [place] [facility] Systolic blood 2023-01-22 13:04:00 97 mm[Hg] Univer sity of pressure [place] [facility] Diastolic blood 2023-01-22 13:04:00 46 mm[Hg] Unive rsity of pressure [place] [facility] Heart rate 2023-01-22 13:04:00 75 /min [facility] [place] [facility] Body temperature 2023-01-22 13:04:00 36.94 [place] Univ ers[facility] [place] [facility] Respiratory rate 2023-01-22 13:04:00 20 /min Univ ers[facility] [place] [facility] Oxygen saturation in 2023-01-22 13:04:00 98 /min University of Arterial blood by [place] [employer] rina Pulse oximetry Branch Body height 2023-01-18 04:23:00 157.5 cm Universi [facility] [place] Body weight 2023-01-18 04:23:00 55.339 kg Universi [facility] BMI 2023-01-18 04:23:00 22.31 kg/m2 [facility] Systolic blood 2023-01-16 13:12:00 116 mm[Hg] Univer sity of pressure [facility] [place] [facility] Diastolic blood 2023-01-16 13:12:00 57 mm[Hg] [facility] Heart rate 2023-01-16 13:12:00 75 /min [facility] Body temperature 2023-01-16 13:12:00 35.83 Ag[facility]ina [facility] Respiratory rate 2023-01-16 13:12:00 18 /min [facility] Oxygen saturation in 2023-01-16 13:12:00 98 /min [facility] Arterial blood by [facility] Pulse oximetry Branch Body height 2023-01-12 14:26:[address] [facility] Body weight 2023-01-12 14:26:[address] [facility] BMI 2023-01-12 14:26:00 22.31 kg/m2 [facility] Procedures Procedure Date / Time Performing Clinician Source Performed BASIC METABOLIC PANEL 2023-02-25 10:35:00 France Salinas [facility] (NA, K, CL, CO2, Medical Branch GLUCOSE, BUN, CREATININE, CA) CBC WITH DIFF 2023-02-25 10:35:00 France Salinas [place] o f [facility] URINALYSIS 2023-02-24 19:06:00 Ledy Monaco [facility] BLOOD CULTURE SCREEN 2023-02-24 18:59:00 Ledy [facility] LACTIC ACID WHOLE BLOOD 2023-02-24 18:59:00 [facility] VW 2023-02-24 18:50:44 Ledy Monaco [facility] CT ABDOMEN PELVIS W 2023-02-24 17:11:46 Ledy Monaco [facility] CONTRAST Medical Branch COMP. METABOLIC PANEL 2023-02-24 16:18:00 Ledy Monaco [facility] ([id number]) Medical Branch CBC WITH DIFF 2023-02-24 16:18:00 Ledy Monaco [facility] ASSIGNMENT OF BENEFITS 2023-02-24 14:30:31 Doctor Unassigned, [facility] Medical Branch MAGNESIUM 2023-01-23 06:33:00 Jose Carlos [facility] BASIC METABOLIC PANEL 2023-01-23 06:33:00 [facility] (NA, K, CL, CO2, Medical Branch GLUCOSE, BUN, CREATININE, CA) CBC WITH DIFF 2023-01-23 06:33:00 [facility]FF 2023-01-22 11:03:00 Jose Carlos [facility] BASIC METABOLIC PANEL 2023-01-22 11:03:00 [facility] (NA, K, CL, CO2, Medical Branch GLUCOSE, BUN, CREATININE, CA) MAGNESIUM 2023-01-22 11:03:00 Jose Carlos [facility] MAGNESIUM 2023-01-22 11:03:00 [facility] BAS[facility]OLIC PANEL 2023-01-22 11:03:00 [facility] (NA, K, CL, CO2, Medical Branch GLUCOSE, BUN, CREATININE, CA) CBC WITH DIFF 2023-01-22 11:03:00 Jose Carlos [facility] CBC WITH DIFF 2023-01-21 10:15:00 Jose Carlos [facility] BASIC METABOLIC PANEL 2023-01-21 10:15:00 [facility] (NA, K, CL, CO2, Medical Branch GLUCOSE, BUN, CREATININE, CA) MAGNESIUM 2023-01-21 10:15:00 Jose Carlos [facility] MAGNESIUM 2023-01-21 10:15:00 Jose Carlos [facility] BASIC METABOLIC PANEL 2023-01-21 10:15:00 Jose Carlos [facility] (NA, K, CL, CO2, Medical Branch GLUCOSE, BUN, CREATININE, CA) CBC WITH DIFF 2023-01-21 10:15:00 [facility] FLUID 2023-01-20 18:56:00 Jose Carlos [facility] BODY FLUID MANUAL DIFF 2023-01-20 18:56:00 Marcos Branch [facility] T.PROTEIN BODY FLUID 2023-01-20 18:56:00 [facility] 2023-01-20 18:56:00 Jose Carlos [facility] LDH TOTAL BODY FLUID 2023-01-20 18:56:00 Jose Carlos [facility] BODY FLUID 2023-01-20 18:56:00 Gabe Perry [facility] CULTURE(AEROBIC/ANAEROBI Medical Branch C) GLUCOSE BODY FLUID 2023-01-20 18:56:00 [facility] T.[facility] BODY FLUID 2023-01-20 18:56:00 Marcos Branch [facility] BODY FLUID DIRECT COUNT 2023-01-20 18:56:00 [facility] CULTURE 2023-01-20 18:56:00 Jose Carlos [facility] BODY FLUID 2023-01-20 18:56:00 Gabe Perry [facility] CULTURE(AEROBIC/ANAEROBI Medical Branch C) LDH TOTAL BODY FLUID 2023-01-20 18:56:00 Marcos Branch [facility] CBC WITH DIFF 2023-01-20 09:27:00 Jose Carlos [facility] BASIC METABOLIC PANEL 2023-01-20 09:27:00 Marcos Branch [facility] (NA, K, CL, CO2, Medical Branch GLUCOSE, BUN, CREATININE, CA) MAGNESIUM 2023-01-20 09:27:00 Jose Carlos [facility] MAGNESIUM 2023-01-20 09:27:00 Jose Carlos [facility] BASIC METABOLIC PANEL 2023-01-20 09:27:00 Jose Carlos [facility] (NA, K, CL, CO2, Medical Branch GLUCOSE, BUN, CREATININE, CA) CBC WITH DIFF 2023-01-20 09:27:00 Jose Carlos [facility] CT ABDOMEN PELVIS W 2023-01-20 08:19:30 Jose Carlos [facility] CONTRAST [facility] CT ABDOMEN PELVIS W 2023-01-20 08:19:30 Jose Carlos [facility] CONTRAST [facility] HB ECG ROUTINE & RHYTHM 2023-01-19 14:52:05 Jose Carlos [facility] HB ECG ROUTINE & RHYTHM 2023-01-19 14:52:05 Jose Carlos [facility] CBC WITH DIFF 2023-01-19 10:10:00 Sanya [facility] BASIC METABOLIC PANEL 2023-01-19 10:10:00 Sanya [facility] (NA, K, CL, CO2, Medical Branch GLUCOSE, BUN, CREATININE, CA) MAGNESIUM 2023-01-19 10:10:00 [facility]OS[facility]US 2023-01-19 10:10:00 [facility] FERRITIN SERUM 2023-01-19 10:10:00 Jose Carlos [facility] VITAMIN B12, LEVEL 2023-01-19 10:10:00 Jose Carlos [facility] FOLATE 2023-01-19 10:10:00 Jose Carlos [facility] PHOSPHORUS 2023-01-19 10:10:00 [facility] MAGNES[facility]UM 2023-01-19 10:10:00 [facility] FERRITIN SERUM 2023-01-19 10:10:00 Jose Carlos [facility] VITAMIN B12, LEVEL 2023-01-19 10:10:00 Jose Carlos [facility] FOLATE 2023-01-19 10:10:00 Jose Carlos [facility] BASIC METABOLIC PANEL 2023-01-19 10:10:00 [facility] (NA, K, CL, CO2, Medical Branch GLUCOSE, BUN, CREATININE, CA) CBC WITH DIFF 2023-01-19 10:10:00 [facility] LACTATE DEHYDROGENASE 2023-01-18 07:33:00 Shen [facility] LACTATE DEHYDROGENASE 2023-01-18 07:33:00 Shen [facility] BLOOD CULTURE SCREEN 2023-01-18 07:32:00 [facility] CBC WITH DIFF 2023-01-18 07:32:00 [facility] BASIC METABOLIC PANEL 2023-01-18 07:32:00 [facility] (NA, K, CL, CO2, Medical Branch GLUCOSE, BUN, CREATININE, CA) MAGNESIUM 2023-01-18 07:32:00 [facility] PHOSPHORUS 2023-01-18 07:32:00 [facility] BLOOD CULTURE SCREEN 2023-01-18 07:32:00 [facility] PHOSPHORUS 2023-01-18 07:32:00 [facility] MAGNESIUM 2023-01-18 07:32:00 [facility] BASIC METABOLIC PANEL 2023-01-18 07:32:00 [facility] (NA, K, CL, CO2, Medical Branch GLUCOSE, BUN, CREATININE, CA) CBC WITH DIFF 2023-01-18 07:32:00 [facility] BODY FLUID MANUAL DIFF 2023-01-18 04:00:00 [facility] GLUCOSE BODY FLUID 2023-01-18 04:00:00 [facility] LDH TOTAL BODY FLUID 2023-01-18 04:00:00 [facility] BODY FLUID (BACTEC 2023-01-18 04:00:00 Gabe Perry [facility] BOTTLE) Medical Branch GLUCOSE BODY FLUID 2023-01-18 04:00:00 [facility] BODY FLUID DIRECT COUNT 2023-01-18 04:00:00 [facility] BODY FLUID (BACTEC 2023-01-18 04:00:00 Gui Perryeugene Guevara [facility] BOTTLE) [facility] Branch LDH TOTAL BODY FLUID 2023-01-18 04:00:00 [facility] BASIC METABOLIC PANEL 2023-01-17 23:45:00 [facility] (NA, K, CL, CO2, Medical Branch GLUCOSE, BUN, CREATININE, CA) MAGNESIUM 2023-01-17 23:45:00 [facility] PHOSPHORUS 2023-01-17 23:45:00 [facility] PHOSPHORUS 2023-01-17 23:45:00 [facility] MAGNESIUM 2023-01-17 23:45:00 [facility] BASIC METABOLIC PANEL 2023-01-17 23:45:00 [facility] (NA, K, CL, CO2, Medical Branch GLUCOSE, BUN, CREATININE, CA) CBC WITH DIFF 2023-01-17 11:01:00 [facility] BASIC METABOLIC PANEL 2023-01-17 11:01:00 [facility] (NA, K, CL, CO2, Medical Branch GLUCOSE, BUN, CREATININE, CA) MAGNESIUM 2023-01-17 11:01:00 [facility] PHOSPHORUS 2023-01-17 11:01:00 [facility] PHOSPHORUS 2023-01-17 11:01:00 [facility] MAGNESIUM 2023-01-17 11:01:00 [facility] BASIC METABOLIC PANEL 2023-01-17 11:01:00 [facility] (NA, K, CL, CO2, Medical Branch GLUCOSE, BUN, CREATININE, CA) CBC WITH DIFF 2023-01-17 11:01:00 [facility] HB ECG ROUTINE & RHYTHM 2023-01-17 01:16:33 [facility] HB ECG ROUTINE & RHYTHM 2023-01-17 01:16:33 [facility] BLOOD CULTURE SCREEN 2023-01-16 19:52:00 [facility] BLOOD CULTURE SCREEN 2023-01-16 19:52:00 [facility] CBC WITH DIFF 2023-01-16 10:58:00 [facility] BASIC METABOLIC PANEL 2023-01-16 10:58:00 [facility] (NA, K, CL, CO2, Medical Branch GLUCOSE, BUN, CREATININE, CA) MAGNESIUM 2023-01-16 10:58:00 [facility] MAGNESIUM 2023-01-16 10:58:00 [facility] BASIC METABOLIC PANEL 2023-01-16 10:58:00 [facility] (NA, K, CL, CO2, Medical Branch GLUCOSE, BUN, CREATININE, CA) CBC WITH DIFF 2023-01-16 10:58:00 [facility] VANCOMYCIN RANDOM LEVEL 2023-01-15 08:47:00 Robbie Banuelos [facility] CBC WITH DIFF 2023-01-15 08:47:00 Shen [facility] BASIC METABOLIC PANEL 2023-01-15 08:47:00 Shen, [facility] (NA, K, CL, CO2, Medical Branch GLUCOSE, BUN, CREATININE, CA) MAGNESIUM 2023-01-15 08:47:00 Shen [facility] IRON PANEL 2023-01-15 08:47:00 Marcos Branch [facility] MAGNESIUM 2023-01-15 08:47:00 [facility] MET[facility]OLIC PANEL 2023-01-15 08:47:00 Jensen Gotti [facility] (NA, K, CL, CO2, Medical Branch GLUCOSE, BUN, CREATININE, CA) IRON PANEL 2023-01-15 08:47:00 Marcos Branch [facility] VANCOMYCIN RANDOM LEVEL 2023-01-15 08:47:00 Robbie Banuelos [facility] CBC WITH DIFF 2023-01-15 08:47:00 Shen [facility] POCT GLUCOSE (AUTOMATED) 2023-01-15 08:46:00 [facility] POCT GLUCOSE (AUTOMATED) 2023-01-15 08:46:00 [facility] POCT GLUCOSE (AUTOMATED) 2023-01-15 04:47:00 [facility] POCT GLUCOSE (AUTOMATED) 2023-01-15 04:47:00 Malissa [facility] POCT GLUCOSE (AUTOMATED) 2023-01-15 01:16:00 Malissa [facility] POCT GLUCOSE (AUTOMATED) 2023-01-15 01:16:00 [facility] BODY FLUID 2023-01-14 21:46:00 Huey Holly [facility] CULTURE(AEROBIC/ANAEROBI [facility] C) AFB CULTURE 2023-01-14 21:46:00 Shen [facility] CULTURE 2023-01-14 21:46:00 Shen, [facility] BODY FLUID 2023-01-14 21:46:00 Malissa [facility] CULTURE(AEROBIC/ANAEROBI [facility] C) GLUCOSE BODY FLUID 2023-01-14 21:45:00 Shen [facility] T.PROTEIN BODY FLUID 2023-01-14 21:45:00 Shen [facility] LDH TOTAL BODY FLUID 2023-01-14 21:45:00 Shen [facility] GLUCOSE BODY FLUID 2023-01-14 21:45:00 Shen [facility] T.PROTEIN BODY FLUID 2023-01-14 21:45:00 ShenJensen mendez [facility] LDH TOTAL BODY FLUID 2023-01-14 21:45:00 [facility] CYTO ABDOMINAL FLUID 2023-01-14 21:44:00 Trinh Mathews [facility] CYTO ABDOMINAL FLUID 2023-01-14 21:44:00 Trinh Mathews [facility] BODY FLUID MANUAL DIFF 2023-01-14 21:43:00 Shen, [facility] BODY FLUID DIRECT COUNT 2023-01-14 21:43:00 [facility] IR 2023-01-14 21:36:00 [facility] [place] PARACENTESIS/[facility] TESIS WITH IMAGING IR 2023-01-14 21:36:00 [facility] WITH [facility] URINE DRUG (IMMUNOASSAY) 2023-01-14 17:27:00 [facility]/O REFLEX URINE DRUG (IMMUNOASSAY) 2023-01-14 17:27:00 [facility] W/O REFLEX POCT GLUCOSE (AUTOMATED) 2023-01-14 17:07:00 [facility] POCT GLUCOSE (AUTOMATED) 2023-01-14 17:07:00 [facility] LACTIC ACID WHOLE BLOOD 2023-01-14 12:48[facility] 2023-01-14 12:48:00 [facility] BASIC METABOLIC PANEL 2023-01-14 10:21:00 Rancho Melgar [facility] (NA, K, CL, CO2, Medical Branch GLUCOSE, BUN, CREATININE, CA) CBC WITH DIFF 2023-01-14 10:21:00 Rancho Melgar [facility] MAGNESIUM 2023-01-14 10:21:00 Rancho Melgar [facility] MAGNESIUM 2023-01-14 10:21:00 Rancho Melgar [facility] BASIC METABOLIC PANEL 2023-01-14 10:21:00 Rancho Melgar [facility] (NA, K, CL, CO2, Medical Branch GLUCOSE, BUN, CREATININE, CA) CBC WITH DIFF 2023-01-14 10:21:00 Rancho Melgar [facility] POCT GLUCOSE (AUTOMATED) 2023-01-14 05:48:[address] [facility] POCT GLUCOSE (AUTOMATED) 2023-01-14 05:48:00 [facility] FECAL PATHOGENS BY PCR 2023-01-14 05:16:00 Jensen Gotti [facility] OVA AND PARASITE EXAM 2023-01-14 05:16:00 [facility] OVA AND PARASITE EXAM 2023-01-14 05:16:00 Shen [facility] FECAL PATHOGENS BY PCR 2023-01-14 05:16:00 Jensen Gotti [facility] CLOSTRIDIUM DIFFICILE 2023-01-14 05:15:00 Shen [facility] CLOSTRIDIUM DIFFICILE 2023-01-14 05:15:00 Shen [facility] VANCOMYCIN RANDOM LEVEL 2023-01-14 04:06:00 Rancho Melgar [facility] VANCOMYCIN RANDOM LEVEL 2023-01-14 04:06:00 Rancho Melgar [facility] POCT GLUCOSE (AUTOMATED) 2023-01-14 02:40:[address] [facility] POCT GLUCOSE (AUTOMATED) 2023-01-14 02:40:[address] [facility] BASIC METABOLIC PANEL 2023-01-14 01:38:00 Jensen Gotti [facility] (NA, K, CL, CO2, Medical Branch GLUCOSE, BUN, CREATININE, CA) LACTIC ACID WHOLE BLOOD 2023-01-14 01:38:00 [facility] BASIC METABOLIC PANEL 2023-01-14 01:38:00 Shen, [facility] (NA, K, CL, CO2, Medical Branch GLUCOSE, BUN, CREATININE, CA) LACTIC ACID WHOLE BLOOD 2023-01-14 01:38:00 Jensen [facility] SODIUM, URINE RANDOM 2023-01-13 22:14:00 Jensen Gotti [facility] CREATININE, URINE RANDOM 2023-01-13 22:14:00 Jensen [facility]otti [facility] UREA NITROGEN, URINE 2023-01-13 22:14:00 Jensen Gotti [facility] RANDOM Medical Branch CREATININE, URINE RANDOM 2023-01-13 22:14:00 [facility] NITROGEN, URINE 2023-01-13 22:14:00 Jensen Gotti [facility] Medical Branch SODIUM, URINE RANDOM 2023-01-13 22:14:00 Jensen Gotti [facility] BASIC METABOLIC PANEL 2023-01-13 21:09:00 Shen, [facility] (NA, K, CL, CO2, Medical Branch GLUCOSE, BUN, CREATININE, CA) PROTHROMBIN TIME / INR 2023-01-13 21:09:00 Jensen Gotti [facility] BASIC METABOLIC PANEL 2023-01-13 21:09:00 Shen, [facility] (NA, K, CL, CO2, Medical Branch GLUCOSE, BUN, CREATININE, CA) PROTHROMBIN TIME / INR 2023-01-13 21:09:00 Jensen [facility] POCT GLUCOSE (AUTOMATED) 2023-01-13 21:08:[address] [facility] POCT GLUCOSE (AUTOMATED) 2023-01-13 21:08:[address] [facility] POCT GLUCOSE (AUTOMATED) 2023-01-13 19:51:[address] [facility] POCT GLUCOSE (AUTOMATED) 2023-01-13 19:51:[address] [facility] TRANSTHORACIC ECHO (TTE) 2023-01-13 19:28:45 Tk Barreto [facility] COMPLETE W/ CONTRAST [facility] TRANSTHORACIC ECHO (TTE) 2023-01-13 19:28:45 Tk Barreto [facility] COMPLETE W/ CONTRAST [facility] XR CHEST 1 VW 2023-01-13 18:23:00 [facility] XR CHEST 1 VW 2023-01-13 18:23:00 [facility] PO[facility] GLUCOSE (AUTOMATED) 2023-01-13 17:48:[address] [facility] POCT GLUCOSE (AUTOMATED) 2023-01-13 17:48:00 [facility] SERUM DRUG (IMMUNOASSAY) 2023-01-13 16:54:00 Tk Barreto [facility] SCREEN BASIC METABOLIC PANEL 2023-01-13 16:54:00 Rancho Melgar [facility] (NA, K, CL, CO2, [facility] GLUCOSE, BUN, CREATININE, CA) ALPHA FETOPROTEIN 2023-01-13 16:54:00 [facility] BASIC METABOLIC PANEL 2023-01-13 16:54:00 Rancho Melgar [facility] (NA, K, CL, CO2, Medical Branch GLUCOSE, BUN, CREATININE, CA) ALPHA FETOPROTEIN 2023-01-13 16:54:00 [facility] SERUM DRUG (IMMUNOASSAY) 2023-01-13 16:54:00 Tk Barreto [facility] SCREEN POCT GLUCOSE (AUTOMATED) 2023-01-13 12:55:[address] [facility] POCT GLUCOSE (AUTOMATED) 2023-01-13 12:55:00 [facility] POCT GLUCOSE (AUTOMATED) 2023-01-13 10:22:[address] [facility] POCT GLUCOSE (AUTOMATED) 2023-01-13 10:22:00 Huey Holly [address] [facility] POCT GLUCOSE (AUTOMATED) 2023-01-13 10:00:[address] [facility] POCT GLUCOSE (AUTOMATED) 2023-01-13 10:00:[address] [facility] BASIC METABOLIC PANEL 2023-01-13 08:36:00 Rancho Melgar [facility] (NA, K, CL, CO2, Medical Branch GLUCOSE, BUN, CREATININE, CA) CBC WITH DIFF 2023-01-13 08:36:00 Rancho Melgar [facility] MAGNESIUM 2023-01-13 08:36:00 Rancho Melgar [facility] MAGNESIUM 2023-01-13 08:36:00 Rancho Melgar [facility] BASIC METABOLIC PANEL 2023-01-13 08:36:00 Rancho Melgar [facility] (NA, K, CL, CO2, Medical Branch GLUCOSE, BUN, CREATININE, CA) CBC WITH DIFF 2023-01-13 08:36:00 Rancho Melgar [facility] HB ECG ROUTINE & RHYTHM 2023-01-13 08:13:22 Rancho Melgar [facility] [place] HB ECG ROUTINE & RHYTHM 2023-01-13 08:13:22 Rancho Melgar [facility] [place] POCT GLUCOSE (AUTOMATED) 2023-01-13 06:46:[address] [facility] POCT GLUCOSE (AUTOMATED) 2023-01-13 06:46:[address] [facility] POCT GLUCOSE (AUTOMATED) 2023-01-13 06:23:[address] [facility] POCT GLUCOSE (AUTOMATED) 2023-01-13 06:23:[address] [facility] AC PANEL 21 + LACTIC 2023-01-13 06:05:00 Rancho Melgar [facility] AC PANEL 21 + LACTIC 2023-01-13 06:05:00 Rancho Melgar [facility] ACID [facility] AC PANEL 21 + LACTIC 2023-01-13 01:59:00 Rancho Melgar [facility] ACID [facility] AC PANEL 21 + LACTIC 2023-01-13 01:59:00 Rancho Melgar [facility] MRSA / MSSA SCREEN BY 2023-01-13 01:58:00 Rancho Melgar [facility] PCR, NARES [facility] CBC WITH DIFF 2023-01-13 01:58:00 Rancho Melgar [facility] ACTIVATED PARTIAL 2023-01-13 01:58:00 Rancho Melgar [facility] / INR 2023-01-13 01:58:00 Rancho Melgar [facility] MAGNESIUM 2023-01-13 01:58:00 Rancho Melgar [facility] PHOSPHORUS 2023-01-13 01:58:00 Rancho Melgar [facility] HEPATIC FUNCTION PANEL 2023-01-13 01:58:00 Rancho Melgar [facility] ([id number]) (ALB,T.PRO,BILI [facility] Branch T,BU/BC,ALT,AST,ALK PHOS) BASIC METABOLIC PANEL 2023-01-13 01:58:00 Rancho Melgar [facility] (NA, K, CL, CO2, Medical Branch GLUCOSE, BUN, CREATININE, CA) HCV ANTIBODY 2023-01-13 01:58:00 Rancho Melgar [facility] HAV ANTIBODY (IGG AND 2023-01-13 01:58:00 Rancho Melgar [facility] IGM) [facility] HEPATITIS B SURFACE 2023-01-13 01:58:00 Rancho Melgar Un [facility] ANTIBODY [facility] HEPATITIS B SURFACE 2023-01-13 01:58:00 Rancho Melgar [facility] ANTIGEN [facility] HEPATITIS B CORE 2023-01-13 01:58:00 Rancho Melgar [facility] ANTIBODY IGM [facility] HEPATITIS C VIRUS (HCV) 2023-01-13 01:58:00 Rancho Melgar [facility] BY QUANTITATIVE [facility] PHOS[facility]US 2023-01-13 01:58:00 Rancho Melgar [facility] MAGNESIUM 2023-01-13 01:58:00 Rancho Melgar [facility] HEPATIC FUNCTION PANEL 2023-01-13 01:58:00 Rancho Melgar [facility] ([id number]) (ALB,T.PRO,BILI Medical Branch T,BU/BC,ALT,AST,ALK PHOS) BASIC METABOLIC PANEL 2023-01-13 01:58:00 Rancho Melgar [facility] (NA, K, CL, CO2, Medical Branch GLUCOSE, BUN, CREATININE, CA) CBC WITH DIFF 2023-01-13 01:58:00 Rancho Melgar [facility] PROTHROMBIN TIME / INR 2023-01-13 01:58:00 Rancho Melgar [facility] ACTIVATED PARTIAL 2023-01-13 01:58:00 Rancho Melgar [facility] THRMPLAS LEIDA [facility] HEPATITIS B SURFACE 2023-01-13 01:58:00 Rancho Melgar Un [facility] ANTIBODY [facility] HEPATITIS B SURFACE 2023-01-13 01:58:00 Rancho Melgar [facility] ANTIGEN [facility] HCV ANTIBODY 2023-01-13 01:58:00 Rancho Melgar [facility] HEPATITIS B CORE 2023-01-13 01:58:00 Rancho Melgar [facility] ANTIBODY IGM [facility] HAV ANTIBODY (IGG AND 2023-01-13 01:58:00 Rancho Melgar [facility] IGM) [facility] HEPATITIS C VIRUS (HCV) 2023-01-13 01:58:00 Rancho Melgar [facility] BY QUANTITATIVE NAAT [facility] MRSA / MSSA SCREEN BY 2023-01-13 01:58:00 Rancho Melgar [facility] PCR, [facility] LACTIC ACID WHOLE BLOOD 2023-01-12 23:21:00 Trinh Mathews [facility] LACTIC ACID WHOLE BLOOD 2023-01-12 23:21:00 Trinh Mathews Uni versity of [facility] URINALYSIS 2023-01-12 20:04:00 Donovan Vyas [facility] CREATININE, URINE RANDOM 2023-01-12 20:04:00 Donovan Vyas [facility] versity of [facility] SODIUM, URINE RANDOM 2023-01-12 20:04:00 Donovan Vyas [facility] URINE CULTURE 2023-01-12 20:04:00 Donovan Vyas [facility] URINALYSIS 2023-01-12 20:04:00 Donovan Vyas [facility] URINE CULTURE 2023-01-12 20:04:00 Donovan Vyas [facility] CREATININE, URINE RANDOM 2023-01-12 20:04:00 Donovan Vyas [facility] versity of [facility] SODIUM, URINE RANDOM 2023-01-12 20:04:[address] [facility] ity of [facility] LACTIC ACID WHOLE BLOOD 2023-01-12 19:11:00 Trinh Mathews [facility] LACTIC ACID WHOLE BLOOD 2023-01-12 19:11:00 Trinh Mathews [facility] CT THORAX WO CONTRAST 2023-01-12 18:28:00 Trinh [facility]ws [facility] CT ABDOMEN PELVIS W 2023-01-12 18:28:[address] [facility] [place]y of [place] CONTRAST Medical Branch CT ABDOMEN PELVIS W 2023-01-12 18:28:[address] [facility] CONTRAST Medical Branch CT THORAX WO CONTRAST 2023-01-12 18:28:00 Trinh Mathews [facility] PROTHROMBIN TIME / INR 2023-01-12 16:55:00 Donovan Vyas [facility] PROTHROMBIN TIME / INR 2023-01-12 16:55:00 Donovan [facility]as [facility] LACTIC ACID WHOLE BLOOD 2023-01-12 16:29:00 Trinh Mathews Uni [facility] of [facility] LACTIC ACID WHOLE BLOOD 2023-01-12 16:29:00 Trinh Mathews [facility] of [facility] URINALYSIS 2023-01-12 16:27:00 [facility] S[facility]EN 2023-01-12 16:27:00 Trinh Mathews [facility] BLOOD CULTURE WORKUP 2023-01-12 16:27:00 Trinh Mathews [facility] BLOOD CULTURE WORKUP 2023-01-12 16:27:00 Trinh Mathews [facility] GRAM NEGATIVE BLOOD 2023-01-12 16:27:00 Trinh Mathews [facility] PATHOGENS DNA [facility] PROBE-AEROBIC BLOOD CULTURE SCREEN 2023-01-12 16:27[facility]-12 16:27:00 [facility] BLOOD CULT[facility] WORKUP 2023-01-12 16:27:00 Trinh Mathews [facility] BLOOD CULTURE WORKUP 2023-01-12 16:27:00 Trinh Mathews [facility] GRAM NEGATIVE BLOOD 2023-01-12 16:27:00 Trinh Mathews [facility] PATHOGENS DNA [facility] PROBE-AEROBIC XR CHEST 1 VW 2023-01-12 15:03:00 [facility] XR CHEST 1 VW 2023-01-12 15:03:00 [facility] HB ECG ROUTINE & RHYTHM 2023-01-12 14:59:51 Trinh Mathews [facility] HB ECG ROUTINE & RHYTHM 2023-01-12 14:59:51 Trinh Mathews [facility] CBC WITH DIFF 2023-01-12 14:50:00 Trinh Mathews [facility] COMP. METABOLIC PANEL 2023-01-12 14:50:00 Trinh Mathews [facility] ([id number]) [facility] TROPONIN I 2023-01-12 14:50:00 Trinh Mathews [facility] N-TERMINAL PRO-BNP 2023-01-12 14:50:00 Trinh Mathews [facility] AMMONIA, PLASMA 2023-01-12 14:50:00 [facility] MAGNESIUM 2023-01-12 14:50:00 Leeanne [facility] ETHANOL 2023-01-12 14:50:00 [facility] HIV 1/2 AG-AB WITH 2023-01-12 14:50:00 Rancho Melgar Uni versity [facility] MAGNESIUM 2023-01-12 14:50:00 Leeanne [facility] AMMONIA, PLASMA 2023-01-12 14:50:00 [facility] TROPONIN I 2023-01-12 14:50:00 [facility] COMP. METABOLIC PANEL 2023-01-12 14:50:00 Trinh Mathews [facility] ([id number]) [facility] ETHANOL 2023-01-12 14:50:00 [facility]FF 2023-01-12 14:50:00 [facility] N-TERMINAL PRO-BNP 2023-01-12 14:50:00 Trinh Mathews [facility] HIV 1/2 AG-AB WITH 2023-01-12 14:50:00 Rancho Melgar Uni [facility] DISCLOSURE AND CONSENT, 2023-01-12 05:01:00 Doctor Unassigned, N o [facility] PROCED[facility] HOSPITAL ADMISSION 2023-01-12 05:01:00 Doctor Unassigned, No [facility] DISCLOSURE AND CONSENT, 2023-01-12 05:01:00 Doctor Unassigned, N o [facility] SURGICAL [facility] PROCEDURES HOSPITAL ADMISSION 2023-01-12 05:01:00 Doctor Unassigned, No [facility] Encounters Start End Encounter Admission Attending Care Care Encounter Source Date/Time Date/Time Type Type Clinicians Facility Department ID 2021-03-28 Emergency [facility] [id number] Univers 23:31:[address] [facility] 2021-03-28 Emergency [facility] [id number] Univers 22:16:25 ity of [facility] 2021-03-28 Emergency [facility] [id number] Univers 21:23:47 ity of [facility] 2021-03-28 Emergency [facility] [id number] [facility]-07 2023-03-07 Outpatient R BISI [facility] [id number] Univers 13:15:00 13:36:11 BISI [facility] 2023-03-07 2023-03-07 [facility] 1.2.840.114 [id number] Univers 13:15:00 13:36:11 Visit Jessica MARJORIE 350.1.13.10 [place] [id number] Ok dical NAL 188 [facility] 2023-02-24 2023-02-25 Outpatient X SHEREE [facility] [id number] Univers 10:44:00 16:28:[address] [facility] 2023-02-24 2023-02-25 Emergency Ledy Monaco [facility] 1.2.8 40.114 [id number] Univers 10:44:00 16:28:00 [place]ipo[place] lim MARJORIE 350.1.13.10 it[facility] [place] [id number] [facility] [address] [place] 2023-02-24 2023-02-24 Outpatient R OBI-AISHWARYA RAND [facility] [id number] Univers 10:00:00 10:31:05 OBI-KEYONA AISHWARYA ity [facility] 2023-02-24 2023-02-24 Office Obi-Keyona [facility] 1.2.840.114 [id number] Univers 10:00:00 10:31:05 Visit Aishwarya 350.1.13.10 i ty [facility] [place] [phone] Ok dical NAL 044 Branch BUILDING 2023-02-24 2023-02-24 Orders Doctor GI 1.2.840.114 [id number] Univers 00:00:00 00:00:00 Only Unassigned, BLESSING 350.1.13.10 ity of [facility] 4.2.7.2.686 Brock as [id number] [facility] 009 Branch 2023-02-04 2023-02-04 Outpatient SFA SFA [id number] Fran 14:16:35 14:16:35 [id number] F Mati 2023-01-26 2023-01-26 Telephone [facility] 1.2.601.251 [id number] Univers 00:00:00 00:00:00 Marcos PRIMARY 350.1.13.10 [place] [phone] Ok dical 388 Branch 2023-01-25 2023-01-25 Transition TAE Burgos 1.2.840.114 [id number] Univers 00:00:00 00:00:00 of Care Mel Hunt LYMAN 350.1.13.10 i [place] [id number] [facility] 403 Branch 2023-01-12 2023-01-23 Inpatient U [facility] SELMA [id number] Univers 09:27:00 16:24:00 GABE ity of [facility] 2023-01-12 2023-01-23 Hospital Trinh Mathews 1.2.840. 114 [id number] Univers 09:27:00 16:24:00 Encounter Huey Holly 350.1.13.10 ity of [facility] 4.2.7.2.686 [facility] [id number] Medical 096 Branch 2023-01-12 2023-01-12 Travel 1.2.840.1 1.2.710.409 [id number] Univers 00:00:00 00:00:00 67818.1.1 350.1.13.10 ity of 3[place]104.2[place][id number] 084.8 Medica l .8 Branch 2016-06-07 2016-06-07 Outpatient R UNKNOWN, [facility] [id number] Univers 10:15:00 10:15:[address] [facility] Results Test Description Test Time Test Comments Results Result Comments Source Lactic Acid Whole Blood 2023-02-24 19:11:17 Test Item Value Reference Range Interpretation Comme nts LACTIC ACID (test code = 6497756443) 1.63 mmol/L 0.50-2.20 Lab Interpretation (test code = 43105-6) Normal [facility] (32207)2023-02-24 17:57:08 Test Item Value Reference Range Interpretation Comments NA (test code = 136 mmol/L 135-145 3096965558) K (test code = 5.2 mmol/L 3.5-5.0 H 9484775350) CL (test code = 107 mmol/L 98-108 7939447768) CO2 TOTAL (test code = 16 mmol/L 23-31 L 4968285771) AGAP (test code = 13 2-16 5337848913) BUN (test code = 24 mg/dL 7-23 H 2186689200) GLUCOSE (test code = 109 mg/dL 70-110 2354004015) CREATININE (test code = 1.53 mg/dL 0.60-1.25 H 1525191530) TOTAL BILI (test code = 2.1 mg/dL 0.1-1.1 H 2536119328) CALCIUM (test code = 9.0 mg/dL 8.6-10.6 0655820528) T PROTEIN (test code = 7.5 g/dL 6.3-8.2 0627909640) ALBUMIN (test code = 3.8 g/dL 3.5-5.0 0425988053) ALK PHOS (test code = 152 U/L 34-122 H 4135121203) ALTv (test code = 25 U/L 5-50 1742-6) AST(SGOT) (test code = 58 U/L 13-40 H 1143499671) eGFR (test code = 46.1 mL/min/1.73m2 8581580924) ALESHA (test code = ALESHA) Association of Glomerular Filtration Rate (GFR) and Staging of Kidney Disease* + --+ --+ ------+| GFR (mL/min/1.73 m2) ?| With Kidney Damage ?| ?Without Kidney Damage+ --------+ --------+ +| ?>90 ?| ?Stage one ?| ? Normal ?+ ---+ ---+ -------+| ?60-89 ?| ?Stage two ?| ? Decreased GFR ? + --+ --+ ------+| ?30-59 ?| ?Stage three ?| ? Stage three ? + --+ --+ ------+| ?15-29 ?| ?Stage four ? | ? Stage four ?+ ---+ ---+ -------+| ?<15 (or dialysis) ? ?| ?Stage five ? | ? Stage five ?+ ---+ ---+ -------+ *Each stage assumes the associated GFR level has been in effect for at least three months. ?Stages 1 to 5, with or without kidney disease, indicate chronic kidney disease. Notes: Determination of stages one and two (with eGFR >59mL/min/1.73 m2) requires estimation of kidney damage for at least three months as defined by structural or functional abnormalities of the kidney, manifested by either:Pathological abnormalities or Markers of kidney damage (including abnormalities in the composition of the blood or urine or abnormalities in imaging tests). Lab Interpretation Abnormal (test code = 28719-0) [facility] WITH [id number] 17:53:43 Test Item Value Reference Range Interpretation Comments WBC (test code = 7.27 See_Comment [Automated 3367-2) message] The sy stem which generated this result transmitted reference range : 4.20 - 10.70 10*3/?L. The reference range was not used to interpret this result as normal/abnormal . RBC (test code = 3.74 See_Comment L [Automated 709-8) message] The sy stem which generated this result transmitted reference range : 4.26 - 5.52 10*6/?L. The reference range was not used to interpret this result as normal/abnormal . HGB (test code = 12.0 g/dL 12.2-16.4 L 718-7) HCT (test code = 35.1 % 38.4-49.3 L 4544-3) MCV (test code = 93.9 fL 81.7-95.6 787-2) MCH (test code = 32.1 pg 26.1-32.7 785-6) MCHC (test code = 34.2 g/dL 31.2-35.0 786-4) RDW-SD (test code = 49.1 fL 38.5-51.6 95176-7) RDW-CV (test code = 14.3 % 12.1-15.4 788-0) PLT (test code = 52 See_Comment L [Automated 777-3) message] The sy stem which generated this result transmitted reference range : 150 - 328 10*3/ ?L. The reference r roland was not used to interpret this result as normal/abnormal . MPV (test code = 13.0 fL 9.8-13.0 39071-3) IPF % (test code = 8.8 % 1.2-10.7 Platelet count 3963401525) measured by fluorescence method. NRBC/100 WBC (test 0.0 See_Comment [Automat ed code = 8345809940) message] The system which generated this result transmitted reference range : 0.0 - 10.0 /100 WBCs. The refer ence range was not u sed to interpret th is result as normal/abnormal . NRBC x10^3 (test code See_Comment [Auto mated = 6923542981) message] The s ystem which generated this result transmitted reference range : 10*3/?L. The reference range was not used to interpret this result as normal/abnormal . GRAN MAT (NEUT) % 56.0 % (test code = 770-8) IMM GRAN % (test code 0.30 % = 4802085739) LYMPH % (test code = 29.4 % 736-9) MONO % (test code = 9.4 % 5905-5) EOS % (test code = 3.9 % 713-8) BASO % (test code = 1.0 % 706-2) GRAN MAT x10^3(ANC) 4.08 10*3/uL 1.99-6.95 (test code = 1661490661) IMM GRAN x10^3 (test 0.00-0.06 code = 4931971361) LYMPH x10^3 (test code 2.14 10*3/uL 1.09-3.23 = 731-0) MONO x10^3 (test code 0.68 10*3/uL 0.36-1.02 = 742-7) EOS x10^3 (test code = 0.28 10*3/uL 0.06-0.53 711-2) BASO x10^3 (test code 0.07 10*3/uL 0.01-0.09 = 704-7) BASIA CELLS (test code 3+ See_Comment A [Auto mated = 7790-9) message] The sy stem which generated this result transmitted reference range : (none). The reference range was not used to interpret this result as normal/abnormal . ELLIPTO/OVAL (test 2+ See_Comment A [Automat ed code = 02900-6) message] The system which generated this result transmitted reference range : (none). The reference range was not used to interpret this result as normal/abnormal . REACT LYMPHS (test Rare code = 4843370306) PLT ESTIMATE (test Decreased Normal A code = 9317-9) GIANT PLATELETS (test Present See_Comment A [Auto mated code = 5908-9) message] The system which generated this result transmitted reference range : (none). The reference range was not used to interpret this result as normal/abnormal . Lab Interpretation Abnormal (test code = 05703-5) [facility]EROBIC/ANAEROBIC) 2023-01-23 11:41:22 Test Item Value Reference Range Interpretation Comments BODY FLUID CULT No organisms isolated (test code = 611-4) Gram stain (test Numerous PMNs or code = 664-3) Mononuclear cells observed [facility]2023-08-26 13:36:14 Test Item Value Reference Range Interpretation Comments MAGNESIUM (test code = 1325840482) 1.9 mg/dL 1.7-2.4 Lab Interpretation (test code = Normal 50687-3) [facility] METABOLIC PANEL (NA, K, CL, CO2, GLUCOSE, BUN, CREATININE, CA)2023-01-22 13:36:14 Test Item Value Reference Range Interpretation Comments NA (test code = 133 mmol/L 135-145 L 1889296501) K (test code = 4.2 mmol/L 3.5-5.0 6113464201) CL (test code = 102 mmol/L 98-108 7576927714) CO2 TOTAL (test code = 25 mmol/L 23-31 6785035640) AGAP (test code = 6 2-16 0550393008) BUN (test code = 15 mg/dL 7-23 1176291087) GLUCOSE (test code = 94 mg/dL 70-110 5597889233) CREATININE (test code = 0.80 mg/dL 0.60-1.25 8625526476) CALCIUM (test code = 8.4 mg/dL 8.6-10.6 L 8048055588) eGFR (test code = 97.3 mL/min/1.73m2 6419405611) ALESHA (test code = ALESHA) Association of Glomerular Filtration Rate (GFR) and Staging of Kidney Disease* + --+ --+ ------+| GFR (mL/min/1.73 m2) ?| With Kidney Damage ?| ?Without Kidney Damage+ --------+ --------+ +| ?>90 ?| ?Stage one ?| ? Normal ?+ ---+ ---+ -------+| ?60-89 ?| ?Stage two ?| ? Decreased GFR ? + --+ --+ ------+| ?30-59 ?| ?Stage three ?| ? Stage three ? + --+ --+ ------+| ?15-29 ?| ?Stage four ? | ? Stage four ?+ ---+ ---+ -------+| ?<15 (or dialysis) ? ?| ?Stage five ? | ? Stage five ?+ ---+ ---+ -------+ *Each stage assumes the associated GFR level has been in effect for at least three months. ?Stages 1 to 5, with or without kidney disease, indicate chronic kidney disease. Notes: Determination of stages one and two (with eGFR >59mL/min/1.73 m2) requires estimation of kidney damage for at least three months as defined by structural or functional abnormalities of the kidney, manifested by either:Pathological abnormalities or Markers of kidney damage (including abnormalities in the composition of the blood or urine or abnormalities in imaging tests). Lab Interpretation Abnormal (test code = 58441-7) [facility] (NA, K, CL, CO2, GLUCOSE, BUN, CREATININE, CA)2023-01-22 13:36:14 Test Item Value Reference Range Interpretation Comments NA (test code = 133 mmol/L 135-145 L 0445147559) K (test code = 4.2 mmol/L 3.5-5.0 2813299890) CL (test code = 102 mmol/L 98-108 6083108220) CO2 TOTAL (test code = 25 mmol/L 23-31 6233244126) AGAP (test code = 6 2-16 6764706033) BUN (test code = 15 mg/dL 7-23 3298320663) GLUCOSE (test code = 94 mg/dL 70-110 8921118089) CREATININE (test code = 0.80 mg/dL 0.60-1.25 5461512034) CALCIUM (test code = 8.4 mg/dL 8.6-10.6 L 8455331715) eGFR (test code = 97.3 mL/min/1.73m2 4227370016) ALESHA (test code = ALESHA) Association of Glomerular Filtration Rate (GFR) and Staging of Kidney Disease* + --+ --+ ------+| GFR (mL/min/1.73 m2) ?| With Kidney Damage ?| ?Without Kidney Damage+ --------+ --------+ +| ?>90 ?| ?Stage one ?| ? Normal ?+ ---+ ---+ -------+| ?60-89 ?| ?Stage two ?| ? Decreased GFR ? + --+ --+ ------+| ?30-59 ?| ?Stage three ?| ? Stage three ? + --+ --+ ------+| ?15-29 ?| ?Stage four ? | ? Stage four ?+ ---+ ---+ -------+| ?<15 (or dialysis) ? ?| ?Stage five ? | ? Stage five ?+ ---+ ---+ -------+ *Each stage assumes the associated GFR level has been in effect for at least three months. ?Stages 1 to 5, with or without kidney disease, indicate chronic kidney disease. Notes: Determination of stages one and two (with eGFR >59mL/min/1.73 m2) requires estimation of kidney damage for at least three months as defined by structural or functional abnormalities of the kidney, manifested by either:Pathological abnormalities or Markers of kidney damage (including abnormalities in the composition of the blood or urine or abnormalities in imaging tests). Lab Interpretation Abnormal (test code = 21411-2) [facility]23[facility] 13:36:14 Test Item Value Reference Range Interpretation Comments MAGNESIUM (test code = 7168065853) 1.9 mg/dL 1.7-2.4 Lab Interpretation (test code = Normal 55621-9) [facility] [id number] 16:41:31 Test Item Value Reference Range Interpretation Comments IRON (test code = 6501157364) 86 ug/dL 50-160 TIBC (test code = 5315513067) 143 ug/dL 250-410 L % FE SAT (test code = 4771600231) 60 % 20-50 H Lab Interpretation (test code = Abnormal 10316-9) [facility] [id number] 16:41:31 Test Item Value Reference Range Interpretation Comments IRON (test code = 5454893950) 86 ug/dL 50-160 TIBC (test code = 8634830508) 143 ug/dL 250-410 L % FE SAT (test code = 3360734809) 60 % 20-50 H Lab Interpretation (test code = Abnormal 35681-5) [facility] FL[facility] MANUAL [id number] 05:37:18 Test Item Value Reference Range Interpretation Comments BF SEGS% (test code = 67 % 75121-9) BF LYMPHS% (test code = 14 % 16480-4) BF MACROPHAGE% (test 16 % Erythro phages observed. code = 06669-1) BF MESOS% (test code = 3 % 27164-9) BF #CELLS CNTD (test 100 cells/uL code = 6382642843) [facility] BODY [id number] 05:19:49 Test Item Value Reference Range Interpretation Comments GLUCOSE BF (test 107 mg/dL code = 6215370513) UNSPUN BODY FLUID Yellow COLOR (test code = 6009125594) UNSPUN BODY FLUID Cloudy CLARITY (test code = 8125230450) SPUN BODY FLUID Yellow COLOR (test code = 0350321335) SPUN BODY FLUID Slightly Cloudy CLARITY (test code = 4310735887) Sediment (test code The sediment volume is = 1627714237) <0.01 mLs of the total fluid volume of 4 mLs and its color is White/Red. ALESHA (test code = Test developed and ALESHA) characteristics determined by [facility] Laboratory Services. [facility] TOTAL BODY [id number] 05:19:49 Test Item Value Reference Range Interpretation Comments LDH BF (test code = 104 U/L 9141827330) UNSPUN BODY FLUID Yellow COLOR (test code = 6754777593) UNSPUN BODY FLUID Cloudy CLARITY (test code = 5968425847) SPUN BODY FLUID Yellow COLOR (test code = 7752013066) SPUN BODY FLUID Slightly Cloudy CLARITY (test code = 6138328218) Sediment (test code The sediment volume is = 6404101069) <0.01 mLs of the total fluid volume of 4 mLs and its color is White/Red. ALESHA (test code = Test developed and ALESHA) characteristics determined by [facility] Laboratory Services. [facility] FL[facility] DIRECT [id number] 05:07:29 Test Item Value Reference Range Interpretation Comments BF COLOR Yellow (test code = 7822928203) BF WBC Count 1185 See_Comment [Automated (test code = message] The sy stem 2198666476) which generated this result transmitted reference range : /?L. The refere nce range was not u sed to interpret th is result as normal/abnormal . BF RBC Count See_Comment [Automated (test code = message] The sy stem 9411136022) which generated this result transmitted reference range : /?L. The refere nce range was not u sed to interpret th is result as normal/abnormal . ALESHA (test The reference range code = ALESHA) and other method performance specifications have not been established for this body fluid. ?The test results must be integrated into the clinical context for interpretation. [facility] METABOLIC PANEL (NA, K, CL, CO2, GLUCOSE, BUN, CREATININE, CA)2023-01-18 00:09:11 Test Item Value Reference Range Interpretation Comments NA (test code = 138 mmol/L 135-145 6613715421) K (test code = 4.5 mmol/L 3.5-5.0 3593599304) CL (test code = 108 mmol/L 98-108 1022380789) CO2 TOTAL (test code = 20 mmol/L 23-31 L 2516590258) AGAP (test code = 10 2-16 0392658367) BUN (test code = 19 mg/dL 7-23 8950414142) GLUCOSE (test code = 132 mg/dL 70-110 H 5892508713) CREATININE (test code = 0.70 mg/dL 0.60-1.25 7913583157) CALCIUM (test code = 8.4 mg/dL 8.6-10.6 L 0686906145) eGFR (test code = 113.5 mL/min/1.73m2 9381583858) ALESHA (test code = ALESHA) Association of Glomerular Filtration Rate (GFR) and Staging of Kidney Disease* + --+ --+ ------+| GFR (mL/min/1.73 m2) ?| With Kidney Damage ?| ?Without Kidney Damage+ --------+ --------+ +| ?>90 ?| ?Stage one ?| ? Normal ?+ ---+ ---+ -------+| ?60-89 ?| ?Stage two ?| ? Decreased GFR ? + --+ --+ ------+| ?30-59 ?| ?Stage three ?| ? Stage three ? + --+ --+ ------+| ?15-29 ?| ?Stage four ? | ? Stage four ?+ ---+ ---+ -------+| ?<15 (or dialysis) ? ?| ?Stage five ? | ? Stage five ?+ ---+ ---+ -------+ *Each stage assumes the associated GFR level has been in effect for at least three months. ?Stages 1 to 5, with or without kidney disease, indicate chronic kidney disease. Notes: Determination of stages one and two (with eGFR >59mL/min/1.73 m2) requires estimation of kidney damage for at least three months as defined by structural or functional abnormalities of the kidney, manifested by either:Pathological abnormalities or Markers of kidney damage (including abnormalities in the composition of the blood or urine or abnormalities in imaging tests). Lab Interpretation Abnormal (test code = 31494-2) [facility]11 Test Item Value Reference Range Interpretation Comments MAGNESIUM (test code = 0509632065) 2.5 mg/dL 1.7-2.4 H Lab Interpretation (test code = Abnormal 80124-2) [facility]23-[facility]-22 00:09:11 Test Item Value Reference Range Interpretation Comments PHOSPHORUS (test code = 9715794276) 2.4 mg/dL 2.5-5.0 L Lab Interpretation (test code = Abnormal 66700-9) [facility](AEROBIC/ANAEROBIC) 2023-01-17 13:34:24 Test Item Value Reference Range Interpretation Comments BODY FLUID CULT No organisms isolated (test code = 611-4) Gram stain (test Numerous PMNs or code = 664-3) Mononuclear cells observed [facility](AEROBIC/ANAEROBIC) 2023-01-17 13:34:24 Test Item Value Reference Range Interpretation Comments BODY FLUID CULT No organisms isolated (test code = 611-4) Gram stain (test Numerous PMNs or code = 664-3) Mononuclear cells observed [facility] WITH [id number] 12:14:29 Test Item Value Reference Range Interpretation Comments WBC (test code = 7.87 See_Comment [Automated 6690-2) message] The sy stem which generated this result transmitted reference range : 4.20 - 10.70 10*3/?L. The reference range was not used to interpret this result as normal/abnormal . RBC (test code = 2.56 See_Comment L [Automated 059-8) message] The sy stem which generated this result transmitted reference range : 4.26 - 5.52 10*6/?L. The reference range was not used to interpret this result as normal/abnormal . HGB (test code = 8.2 g/dL 12.2-16.4 L 718-7) HCT (test code = 24.2 % 38.4-49.3 L 4544-3) MCV (test code = 94.5 fL 81.7-95.6 787-2) MCH (test code = 32.0 pg 26.1-32.7 785-6) MCHC (test code = 33.9 g/dL 31.2-35.0 786-4) RDW-SD (test code = 51.7 fL 38.5-51.6 H 30938-6) RDW-CV (test code = 14.9 % 12.1-15.4 788-0) PLT (test code = 55 See_Comment L [Automated 777-3) message] The sy stem which generated this result transmitted reference range : 150 - 328 10*3/ ?L. The reference r roland was not used to interpret this result as normal/abnormal . MPV (test code = 10.5 fL 9.8-13.0 74734-6) IPF % (test code = 3.9 % 1.2-10.7 Platelet count [id number]) measured by fluorescence method. NRBC/100 WBC (test 0.0 See_Comment [Automat ed code = 9981903286) message] The system which generated this result transmitted reference range : 0.0 - 10.0 /100 WBCs. The refer ence range was not u sed to interpret th is result as normal/abnormal . NRBC x10^3 (test code See_Comment [Auto mated = 2837200814) message] The s ystem which generated this result transmitted reference range : 10*3/?L. The reference range was not used to interpret this result as normal/abnormal . GRAN MAT (NEUT) % 62.1 % (test code = 770-8) IMM GRAN % (test code 3.90 % = 5527298021) LYMPH % (test code = 20.2 % 736-9) MONO % (test code = 13.0 % 5905-5) EOS % (test code = 0.5 % 713-8) BASO % (test code = 0.3 % 706-2) GRAN MAT x10^3(ANC) 4.89 10*3/uL 1.99-6.95 (test code = 5149111701) IMM GRAN x10^3 (test 0.31 10*3/uL 0.00-0.06 H code = 1687040227) LYMPH x10^3 (test code 1.59 10*3/uL 1.09-3.23 = 731-0) MONO x10^3 (test code 1.02 10*3/uL 0.36-1.02 = 742-7) EOS x10^3 (test code = 0.04 10*3/uL 0.06-0.53 L 711-2) BASO x10^3 (test code 0.01-0.09 = 704-7) BASIA CELLS (test code 2+ See_Comment A [Auto mated = 7790-9) message] The sy stem which generated this result transmitted reference range : (none). The reference range was not used to interpret this result as normal/abnormal . Lab Interpretation Abnormal (test code = 76325-4) [facility] WITH [id number] 12:14:29 Test Item Value Reference Range Interpretation Comments WBC (test code = 7.87 See_Comment [Automated 6690-2) message] The sy stem which generated this result transmitted reference range : 4.20 - 10.70 10*3/?L. The reference range was not used to interpret this result as normal/abnormal . RBC (test code = 2.56 See_Comment L [Automated 789-8) message] The sy stem which generated this result transmitted reference range : 4.26 - 5.52 10*6/?L. The reference range was not used to interpret this result as normal/abnormal . HGB (test code = 8.2 g/dL 12.2-16.4 L 718-7) HCT (test code = 24.2 % 38.4-49.3 L 4544-3) MCV (test code = 94.5 fL 81.7-95.6 787-2) MCH (test code = 32.0 pg 26.1-32.7 785-6) MCHC (test code = 33.9 g/dL 31.2-35.0 786-4) RDW-SD (test code = 51.7 fL 38.5-51.6 H 22802-5) RDW-CV (test code = 14.9 % 12.1-15.4 788-0) PLT (test code = 55 See_Comment L [Automated 777-3) message] The sy stem which generated this result transmitted reference range : 150 - 328 10*3/ ?L. The reference r roland was not used to interpret this result as normal/abnormal . MPV (test code = 10.5 fL 9.8-13.0 37560-5) IPF % (test code = 3.9 % 1.2-10.7 Platelet count 3240464351) measured by fluorescence method. NRBC/100 WBC (test 0.0 See_Comment [Automat ed code = 5545591714) message] The system which generated this result transmitted reference range : 0.0 - 10.0 /100 WBCs. The refer ence range was not u sed to interpret th is result as normal/abnormal . NRBC x10^3 (test code See_Comment [Auto mated = 7990005954) message] The s ystem which generated this result transmitted reference range : 10*3/?L. The reference range was not used to interpret this result as normal/abnormal . GRAN MAT (NEUT) % 62.1 % (test code = 770-8) IMM GRAN % (test code 3.90 % = 3179848943) LYMPH % (test code = 20.2 % 736-9) MONO % (test code = 13.0 % 5905-5) EOS % (test code = 0.5 % 713-8) BASO % (test code = 0.3 % 706-2) GRAN MAT x10^3(ANC) 4.89 10*3/uL 1.99-6.95 (test code = 3775175409) IMM GRAN x10^3 (test 0.31 10*3/uL 0.00-0.06 H code = 7238402512) LYMPH x10^3 (test code 1.59 10*3/uL 1.09-3.23 = 731-0) MONO x10^3 (test code 1.02 10*3/uL 0.36-1.02 = 742-7) EOS x10^3 (test code = 0.04 10*3/uL 0.06-0.53 L 711-2) BASO x10^3 (test code 0.01-0.09 = 704-7) BASIA CELLS (test code 2+ See_Comment A [Auto mated = 7720-9) message] The sy stem which generated this result transmitted reference range : (none). The reference range was not used to interpret this result as normal/abnormal . Lab Interpretation Abnormal (test code = 72009-3) [facility] Test Item Value Reference Range Interpretation Comments MAGNESIUM (test code = 4784803621) 1.9 mg/dL 1.7-2.4 Lab Interpretation (test code = Normal 66226-2) [facility] METABOLIC PANEL (NA, K, CL, CO2, GLUCOSE, BUN, CREATININE, CA)2023-01-16 11:29:39 Test Item Value Reference Range Interpretation Comments NA (test code = 140 mmol/L 135-145 5964936786) K (test code = 3.2 mmol/L 3.5-5.0 L 8341577610) CL (test code = 110 mmol/L 98-108 H 6656407093) CO2 TOTAL (test code = 21 mmol/L 23-31 L 8644590700) AGAP (test code = 9 2-16 5219519539) BUN (test code = 28 mg/dL 7-23 H 9014808389) GLUCOSE (test code = 85 mg/dL 70-110 5125059069) CREATININE (test code = 0.79 mg/dL 0.60-1.25 9643822241) CALCIUM (test code = 8.3 mg/dL 8.6-10.6 L 7911095464) eGFR (test code = 98.7 mL/min/1.73m2 0190936113) ALESHA (test code = ALESHA) Association of Glomerular Filtration Rate (GFR) and Staging of Kidney Disease* + --+ --+ ------+| GFR (mL/min/1.73 m2) ?| With Kidney Damage ?| ?Without Kidney Damage+ --------+ --------+ +| ?>90 ?| ?Stage one ?| ? Normal ?+ ---+ ---+ -------+| ?60-89 ?| ?Stage two ?| ? Decreased GFR ? + --+ --+ ------+| ?30-59 ?| ?Stage three ?| ? Stage three ? + --+ --+ ------+| ?15-29 ?| ?Stage four ? | ? Stage four ?+ ---+ ---+ -------+| ?<15 (or dialysis) ? ?| ?Stage five ? | ? Stage five ?+ ---+ ---+ -------+ *Each stage assumes the associated GFR level has been in effect for at least three months. ?Stages 1 to 5, with or without kidney disease, indicate chronic kidney disease. Notes: Determination of stages one and two (with eGFR >59mL/min/1.73 m2) requires estimation of kidney damage for at least three months as defined by structural or functional abnormalities of the kidney, manifested by either:Pathological abnormalities or Markers of kidney damage (including abnormalities in the composition of the blood or urine or abnormalities in imaging tests). Lab Interpretation Abnormal (test code = 73646-9) [facility] METABOLIC PANEL (NA, K, CL, CO2, GLUCOSE, BUN, CREATININE, CA)2023-01-16 11:29:39 Test Item Value Reference Range Interpretation Comments NA (test code = 140 mmol/L 135-145 7068577865) K (test code = 3.2 mmol/L 3.5-5.0 L 1441592577) CL (test code = 110 mmol/L 98-108 H 2388622201) CO2 TOTAL (test code = 21 mmol/L 23-31 L 9417898656) AGAP (test code = 9 2-16 5238720648) BUN (test code = 28 mg/dL 7-23 H 8013455600) GLUCOSE (test code = 85 mg/dL 70-110 9734847808) CREATININE (test code = 0.79 mg/dL 0.60-1.25 9702735348) CALCIUM (test code = 8.3 mg/dL 8.6-10.6 L 6909696709) eGFR (test code = 98.7 mL/min/1.73m2 5253580375) ALESHA (test code = ALESHA) Association of Glomerular Filtration Rate (GFR) and Staging of Kidney Disease* + --+ --+ ------+| GFR (mL/min/1.73 m2) ?| With Kidney Damage ?| ?Without Kidney Damage+ --------+ --------+ +| ?>90 ?| ?Stage one ?| ? Normal ?+ ---+ ---+ -------+| ?60-89 ?| ?Stage two ?| ? Decreased GFR ? + --+ --+ ------+| ?30-59 ?| ?Stage three ?| ? Stage three ? + --+ --+ ------+| ?15-29 ?| ?Stage four ? | ? Stage four ?+ ---+ ---+ -------+| ?<15 (or dialysis) ? ?| ?Stage five ? | ? Stage five ?+ ---+ ---+ -------+ *Each stage assumes the associated GFR level has been in effect for at least three months. ?Stages 1 to 5, with or without kidney disease, indicate chronic kidney disease. Notes: Determination of stages one and two (with eGFR >59mL/min/1.73 m2) requires estimation of kidney damage for at least three months as defined by structural or functional abnormalities of the kidney, manifested by either:Pathological abnormalities or Markers of kidney damage (including abnormalities in the composition of the blood or urine or abnormalities in imaging tests). Lab Interpretation Abnormal (test code = 68331-4) [facility] 11:29:39 Test Item Value Reference Range Interpretation Comments MAGNESIUM (test code = 1807688932) 1.9 mg/dL 1.7-2.4 Lab Interpretation (test code = Normal 38275-6) [facility] [id number] 10:16:34 Test Item Value Reference Range Interpretation Comments VANCO RANDOM (test code = 11.5 ug/mL 6280747499) [facility] [id number] 10:16:34 Test Item Value Reference Range Interpretation Comments VANCO RANDOM (test code = 11.5 ug/mL 8897909998) [facility] Random [id number] 10:16:34 Test Item Value Reference Range Interpretation Comments VANCO RANDOM (test code = 11.5 ug/mL 3382143068) [facility] (NA, K, CL, CO2, GLUCOSE, BUN, CREATININE, CA)2023-01-15 10:09:33 Test Item Value Reference Range Interpretation Comments NA (test code = 137 mmol/L 135-145 4680425023) K (test code = 3.5 mmol/L 3.5-5.0 8699940818) CL (test code = 110 mmol/L 98-108 H 2436961459) CO2 TOTAL (test code = 22 mmol/L 23-31 L 5448243959) AGAP (test code = 5 2-16 6837253917) BUN (test code = 30 mg/dL 7-23 H 6705716702) GLUCOSE (test code = 99 mg/dL 70-110 2536528678) CREATININE (test code = 0.97 mg/dL 0.60-1.25 4736208956) CALCIUM (test code = 8.0 mg/dL 8.6-10.6 L 1330487001) eGFR (test code = 77.9 mL/min/1.73m2 0304006841) ALESHA (test code = ALESHA) Association of Glomerular Filtration Rate (GFR) and Staging of Kidney Disease* + --+ --+ ------+| GFR (mL/min/1.73 m2) ?| With Kidney Damage ?| ?Without Kidney Damage+ --------+ --------+ +| ?>90 ?| ?Stage one ?| ? Normal ?+ ---+ ---+ -------+| ?60-89 ?| ?Stage two ?| ? Decreased GFR ? + --+ --+ ------+| ?30-59 ?| ?Stage three ?| ? Stage three ? + --+ --+ ------+| ?15-29 ?| ?Stage four ? | ? Stage four ?+ ---+ ---+ -------+| ?<15 (or dialysis) ? ?| ?Stage five ? | ? Stage five ?+ ---+ ---+ -------+ *Each stage assumes the associated GFR level has been in effect for at least three months. ?Stages 1 to 5, with or without kidney disease, indicate chronic kidney disease. Notes: Determination of stages one and two (with eGFR >59mL/min/1.73 m2) requires estimation of kidney damage for at least three months as defined by structural or functional abnormalities of the kidney, manifested by either:Pathological abnormalities or Markers of kidney damage (including abnormalities in the composition of the blood or urine or abnormalities in imaging tests). Lab Interpretation Abnormal (test code = 73560-6) [facility] 10:09:33 Test Item Value Reference Range Interpretation Comments MAGNESIUM (test code = 5274495782) 2.2 mg/dL 1.7-2.4 Lab Interpretation (test code = Normal 38382-0) [facility] WITH [id number] 09:52:15 Test Item Value Reference Range Interpretation Comments WBC (test code = 19.24 See_Comment H [Automated 6690-2) message] The sy stem which generated this result transmitted reference range : 4.20 - 10.70 10*3/?L. The reference range was not used to interpret this result as normal/abnormal . RBC (test code = 2.95 See_Comment L [Automated 789-8) message] The sy stem which generated this result transmitted reference range : 4.26 - 5.52 10*6/?L. The reference range was not used to interpret this result as normal/abnormal . HGB (test code = 9.4 g/dL 12.2-16.4 L 718-7) HCT (test code = 27.3 % 38.4-49.3 L 4544-3) MCV (test code = 92.5 fL 81.7-95.6 787-2) MCH (test code = 31.9 pg 26.1-32.7 785-6) MCHC (test code = 34.4 g/dL 31.2-35.0 786-4) RDW-SD (test code = 51.7 fL 38.5-51.6 H 22919-4) RDW-CV (test code = 15.1 % 12.1-15.4 788-0) PLT (test code = 95 See_Comment L [Automated 777-3) message] The sy stem which generated this result transmitted reference range : 150 - 328 10*3/ ?L. The reference r roland was not used to interpret this result as normal/abnormal . MPV (test code = 11.0 fL 9.8-13.0 29705-7) IPF % (test code = 5.1 % 1.2-10.7 Platelet count 0708739370) measured by fluorescence method. NRBC/100 WBC (test 0.0 See_Comment [Automat ed code = 5868573722) message] The system which generated this result transmitted reference range : 0.0 - 10.0 /100 WBCs. The refer ence range was not u sed to interpret th is result as normal/abnormal . NRBC x10^3 (test code See_Comment [Auto mated = 1282155540) message] The s ystem which generated this result transmitted reference range : 10*3/?L. The reference range was not used to interpret this result as normal/abnormal . GRAN MAT (NEUT) % 73.9 % (test code = 770-8) IMM GRAN % (test code 1.10 % = 7861716139) LYMPH % (test code = 15.4 % 736-9) MONO % (test code = 9.2 % 5905-5) EOS % (test code = 0.2 % 713-8) BASO % (test code = 0.2 % 706-2) GRAN MAT x10^3(ANC) 14.21 10*3/uL 1.99-6.95 H (test code = 7780875943) IMM GRAN x10^3 (test 0.22 10*3/uL 0.00-0.06 H code = 8009317798) LYMPH x10^3 (test 2.96 10*3/uL 1.09-3.23 code = 731-0) MONO x10^3 (test code 1.77 10*3/uL 0.36-1.02 H = 742-7) EOS x10^3 (test code 0.04 10*3/uL 0.06-0.53 L = 711-2) BASO x10^3 (test code 0.04 10*3/uL 0.01-0.09 = 704-7) BASIA CELLS (test code 2+ See_Comment A [Auto mated = 0438-9) message] The sy stem which generated this result transmitted reference range : (none). The reference range was not used to interpret this result as normal/abnormal . BANDS (test code = Increased A 4964703751) Lab Interpretation Abnormal (test code = 65769-2) [facility] GLUCOSE (AUTOMATED)2023-01-15 08:47:28 Test Item Value Reference Range Interpretation Comments POCT GLU (test code = 6616646552) 106 mg/dL 70-110 Lab Interpretation (test code = Normal 01683-6) [facility] GLUCOSE (AUTOMATED)2023-01-15 08:47:28 Test Item Value Reference Range Interpretation Comments POCT GLU (test code = 0893448808) 106 mg/dL 70-110 Lab Interpretation (test code = Normal 25415-0) [facility] GLUCOSE (AUTOMATED)2023-01-15 08:47:28 Test Item Value Reference Range Interpretation Comments POCT GLU (test code = 0180867934) 106 mg/dL 70-110 Lab Interpretation (test code = Normal 51870-5) [facility] GLUCOSE (AUTOMATED)2023-01-15 04:47:23 Test Item Value Reference Range Interpretation Comments POCT GLU (test code = 7620197954) 106 mg/dL 70-110 Lab Interpretation (test code = Normal 84755-0) [facility] GLUCOSE (AUTOMATED)2023-01-15 01:18:20 Test Item Value Reference Range Interpretation Comments POCT GLU (test code = 1534820727) 124 mg/dL 70-110 H Lab Interpretation (test code = Abnormal 71012-0) [facility] GLUCOSE (AUTOMATED)2023-01-14 17:08:43 Test Item Value Reference Range Interpretation Comments POCT GLU (test code = 1850509395) 169 mg/dL 70-110 H Lab Interpretation (test code = Abnormal 63932-9) [facility] [id number] 12:57:14 Test Item Value Reference Range Interpretation Comments LACTIC ACID (test code = 2.12 mmol/L 0.50-2.20 1640408361) Lab Interpretation (test code = Normal 00560-0) [facility] Acid Whole [id number] 12:57:14 Test Item Value Reference Range Interpretation Comments LACTIC ACID (test code = 2.12 mmol/L 0.50-2.20 4218294397) Lab Interpretation (test code = Normal 39587-1) [facility] Acid Whole [id number] 12:57:14 Test Item Value Reference Range Interpretation Comments LACTIC ACID (test code = 2.12 mmol/L 0.50-2.20 1749225998) Lab Interpretation (test code = Normal 97063-7) [facility] WITH [id number] 12:19:35 Test Item Value Reference Range Interpretation Comments WBC (test code = 24.78 See_Comment H [Automated 6690-2) message] The sy stem which generated this result transmitted reference range : 4.20 - 10.70 10*3/?L. The reference range was not used to interpret this result as normal/abnormal . RBC (test code = 2.73 See_Comment L [Automated 789-8) message] The sy stem which generated this result transmitted reference range : 4.26 - 5.52 10*6/?L. The reference range was not used to interpret this result as normal/abnormal . HGB (test code = 8.7 g/dL 12.2-16.4 L 718-7) HCT (test code = 25.8 % 38.4-49.3 L 4544-3) MCV (test code = 94.5 fL 81.7-95.6 787-2) MCH (test code = 31.9 pg 26.1-32.7 785-6) MCHC (test code = 33.7 g/dL 31.2-35.0 786-4) RDW-SD (test code = 52.0 fL 38.5-51.6 H 03557-5) RDW-CV (test code = 15.3 % 12.1-15.4 788-0) PLT (test code = 127 See_Comment L [Automated 777-3) message] The sy stem which generated this result transmitted reference range : 150 - 328 10*3/ ?L. The reference r roland was not used to interpret this result as normal/abnormal . MPV (test code = 11.3 fL 9.8-13.0 83250-7) IPF % (test code = 4.8 % 1.2-10.7 Platelet count 6785066990) measured by fluorescence method. NRBC/100 WBC (test 0.0 See_Comment [Automat ed code = 6547704083) message] The system which generated this result transmitted reference range : 0.0 - 10.0 /100 WBCs. The refer ence range was not u sed to interpret th is result as normal/abnormal . NRBC x10^3 (test code See_Comment [Auto mated = 0790192036) message] The s ystem which generated this result transmitted reference range : 10*3/?L. The reference range was not used to interpret this result as normal/abnormal . SEG % (test code = 50 % 33-76 65804-7) BAND % (test code = 38 % 0-1 H 84299-1) META % (test code = 1 % <=0 H 89248-0) MYELO % (test code = 1 % <=0 H 80576-3) LYMPH % (test code = 4 % 14-54 L 01749-4) MONO % (test code = 6 % 0-4 H 40721-7) ANC (test code = 21.81 10*3/uL 1.99-6.95 H 753-4) BASIA CELLS (test code 3+ See_Comment A [Auto mated = 7205-9) message] The sy stem which generated this result transmitted reference range : (none). The reference range was not used to interpret this result as normal/abnormal . Lab Interpretation Abnormal (test code = 32687-0) [facility] METABOLIC PANEL (NA, K, CL, CO2, GLUCOSE, BUN, CREATININE, CA)2023-01-14 10:53:49 Test Item Value Reference Range Interpretation Comments NA (test code = 137 mmol/L 135-145 3559045459) K (test code = 3.5 mmol/L 3.5-5.0 1457594519) CL (test code = 110 mmol/L 98-108 H 9953660150) CO2 TOTAL (test code = 20 mmol/L 23-31 L 3416023693) AGAP (test code = 7 2-16 3580122008) BUN (test code = 24 mg/dL 7-23 H 6079549320) GLUCOSE (test code = 130 mg/dL 70-110 H 2478417532) CREATININE (test code = 1.14 mg/dL 0.60-1.25 1338213685) CALCIUM (test code = 7.5 mg/dL 8.6-10.6 L 6949858833) eGFR (test code = 64.7 mL/min/1.73m2 5148774935) ALESHA (test code = ALESHA) Association of Glomerular Filtration Rate (GFR) and Staging of Kidney Disease* + --+ --+ ------+| GFR (mL/min/1.73 m2) ?| With Kidney Damage ?| ?Without Kidney Damage+ --------+ --------+ +| ?>90 ?| ?Stage one ?| ? Normal ?+ ---+ ---+ -------+| ?60-89 ?| ?Stage two ?| ? Decreased GFR ? + --+ --+ ------+| ?30-59 ?| ?Stage three ?| ? Stage three ? + --+ --+ ------+| ?15-29 ?| ?Stage four ? | ? Stage four ?+ ---+ ---+ -------+| ?<15 (or dialysis) ? ?| ?Stage five ? | ? Stage five ?+ ---+ ---+ -------+ *Each stage assumes the associated GFR level has been in effect for at least three months. ?Stages 1 to 5, with or without kidney disease, indicate chronic kidney disease. Notes: Determination of stages one and two (with eGFR >59mL/min/1.73 m2) requires estimation of kidney damage for at least three months as defined by structural or functional abnormalities of the kidney, manifested by either:Pathological abnormalities or Markers of kidney damage (including abnormalities in the composition of the blood or urine or abnormalities in imaging tests). Lab Interpretation Abnormal (test code = 38674-9) [facility] 10:53:49 Test Item Value Reference Range Interpretation Comments MAGNESIUM (test code = 5018205102) 2.4 mg/dL 1.7-2.4 Lab Interpretation (test code = Normal 41867-6) [facility] [id number] 05:58:18 Test Item Value Reference Range Interpretation Comments VANCO RANDOM (test code = 10.4 ug/mL 2765355253) [facility]2023-01-14 05:49:30 Test Item Value Reference Range Interpretation Comments POCT GLU (test code = 4278922073) 177 mg/dL 70-110 H Lab Interpretation (test code = Abnormal 29304-2) [facility] [id number] 03:39:41 Test Item Value Reference Range Interpretation Comments AFP (test code = 3.3 ng/mL <=7.5 3820874120) ALESHA (test code = ALESHA) Biotin has been reported to cause a negative bias, interpret results relative to patient's use of biotin. Lab Interpretation (test Normal code = 45757-1) [facility] [id number] 03:39:41 Test Item Value Reference Range Interpretation Comments AFP (test code = 3.3 ng/mL <=7.5 0551903293) ALESHA (test code = ALESHA) Biotin has been reported to cause a negative bias, interpret results relative to patient's use of biotin. Lab Interpretation (test Normal code = 95311-9) [facility] [id number] 03:39:41 Test Item Value Reference Range Interpretation Comments AFP (test code = 3.3 ng/mL <=7.5 8378132823) ALESHA (test code = ALESHA) Biotin has been reported to cause a negative bias, interpret results relative to patient's use of biotin. Lab Interpretation (test Normal code = 70314-1) [facility]2023-01-14 02:40:58 Test Item Value Reference Range Interpretation Comments POCT GLU (test code = 5492041650) 152 mg/dL 70-110 H Lab Interpretation (test code = Abnormal 03091-5) [facility] (NA, K, CL, CO2, GLUCOSE, BUN, CREATININE, CA)2023-01-14 02:04:51 Test Item Value Reference Range Interpretation Comments NA (test code = 138 mmol/L 135-145 5787304144) K (test code = 3.5 mmol/L 3.5-5.0 0939050268) CL (test code = 113 mmol/L 98-108 H 4738288335) CO2 TOTAL (test code = 18 mmol/L 23-31 L 7036662710) AGAP (test code = 7 2-16 4907774251) BUN (test code = 21 mg/dL 7-23 8942478478) GLUCOSE (test code = 146 mg/dL 70-110 H 6912110425) CREATININE (test code = 1.08 mg/dL 0.60-1.25 3772911053) CALCIUM (test code = 7.2 mg/dL 8.6-10.6 L 3903700859) eGFR (test code = 68.8 mL/min/1.73m2 9037567648) ALESHA (test code = ALESHA) Association of Glomerular Filtration Rate (GFR) and Staging of Kidney Disease* + --+ --+ ------+| GFR (mL/min/1.73 m2) ?| With Kidney Damage ?| ?Without Kidney Damage+ --------+ --------+ +| ?>90 ?| ?Stage one ?| ? Normal ?+ ---+ ---+ -------+| ?60-89 ?| ?Stage two ?| ? Decreased GFR ? + --+ --+ ------+| ?30-59 ?| ?Stage three ?| ? Stage three ? + --+ --+ ------+| ?15-29 ?| ?Stage four ? | ? Stage four ?+ ---+ ---+ -------+| ?<15 (or dialysis) ? ?| ?Stage five ? | ? Stage five ?+ ---+ ---+ -------+ *Each stage assumes the associated GFR level has been in effect for at least three months. ?Stages 1 to 5, with or without kidney disease, indicate chronic kidney disease. Notes: Determination of stages one and two (with eGFR >59mL/min/1.73 m2) requires estimation of kidney damage for at least three months as defined by structural or functional abnormalities of the kidney, manifested by either:Pathological abnormalities or Markers of kidney damage (including abnormalities in the composition of the blood or urine or abnormalities in imaging tests). Lab Interpretation Abnormal (test code = 90665-9) [facility] Whole [id number] 01:43:00 Test Item Value Reference Range Interpretation Comments LACTIC ACID (test code = 2.85 mmol/L 0.50-2.20 H 7197038999) Lab Interpretation (test code = Abnormal 95861-2) [facility] (NA, K, CL, CO2, GLUCOSE, BUN, CREATININE, CA)2023-01-13 22:31:02 Test Item Value Reference Range Interpretation Comments NA (test code = 138 mmol/L 135-145 7636440321) K (test code = 4.1 mmol/L 3.5-5.0 1268736854) CL (test code = 111 mmol/L 98-108 H 3880547634) CO2 TOTAL (test code = 18 mmol/L 23-31 L 2097913580) AGAP (test code = 9 2-16 9469131716) BUN (test code = 20 mg/dL 7-23 7357776215) GLUCOSE (test code = 145 mg/dL 70-110 H 7792225208) CREATININE (test code = 1.21 mg/dL 0.60-1.25 4510804483) CALCIUM (test code = 8.1 mg/dL 8.6-10.6 L 3994534344) eGFR (test code = 60.4 mL/min/1.73m2 7321190949) ALESHA (test code = ALESHA) Association of Glomerular Filtration Rate (GFR) and Staging of Kidney Disease* + --+ --+ ------+| GFR (mL/min/1.73 m2) ?| With Kidney Damage ?| ?Without Kidney Damage+ --------+ --------+ +| ?>90 ?| ?Stage one ?| ? Normal ?+ ---+ ---+ -------+| ?60-89 ?| ?Stage two ?| ? Decreased GFR ? + --+ --+ ------+| ?30-59 ?| ?Stage three ?| ? Stage three ? + --+ --+ ------+| ?15-29 ?| ?Stage four ? | ? Stage four ?+ ---+ ---+ -------+| ?<15 (or dialysis) ? ?| ?Stage five ? | ? Stage five ?+ ---+ ---+ -------+ *Each stage assumes the associated GFR level has been in effect for at least three months. ?Stages 1 to 5, with or without kidney disease, indicate chronic kidney disease. Notes: Determination of stages one and two (with eGFR >59mL/min/1.73 m2) requires estimation of kidney damage for at least three months as defined by structural or functional abnormalities of the kidney, manifested by either:Pathological abnormalities or Markers of kidney damage (including abnormalities in the composition of the blood or urine or abnormalities in imaging tests). Lab Interpretation Abnormal (test code = 88739-4) [facility] SouthPROTHROMBIN TIME / [id number] 21:57:30 Test Item Value Reference Range Interpretation Comments PROTIME PATIENT (test 28.4 See_Comment H [Auto mated message] code = 5964-2) The system [employer] generated this result transmitted ref erence range: 10.1 - 1 2.6 Seconds. The reference range was not used to int erpret this result as normal/abnormal . INR (test code = 6301-6) 2.4 Nor mal INR <1.1; Warfarin Therap eutic range 2.0 to 3. 0 or 2.5 to 3.5, dep ending upon the indica tions. Lab Interpretation (test Abnormal code = 51141-5) [facility] SouthPROTHROM[facility] TIME / [id number] 21:57:30 Test Item Value Reference Range Interpretation Comments PROTIME PATIENT (test 28.4 See_Comment H [Auto mated message] code = 5964-2) The system [employer] generated this result transmitted ref erence range: 10.1 - 1 2.6 Seconds. The reference range was not used to int erpret this result as normal/abnormal . INR (test code = 6301-6) 2.4 Nor mal INR <1.1; Warfarin Therap eutic range 2.0 to 3. 0 or 2.5 to 3.5, dep ending upon the indica tions. Lab Interpretation (test Abnormal code = 07832-7) [facility] South[facility] TIME / [id number] 21:57:30 Test Item Value Reference Range Interpretation Comments PROTIME PATIENT (test 28.4 See_Comment H [Auto mated message] code = 5964-2) The system [employer] generated this result transmitted ref erence range: 10.1 - 1 2.6 Seconds. The reference range was not used to int erpret this result as normal/abnormal . INR (test code = 6301-6) 2.4 Nor mal INR <1.1; Warfarin Therap eutic range 2.0 to 3. 0 or 2.5 to 3.5, dep ending upon the indica tions. Lab Interpretation (test Abnormal code = 34748-3) [facility])2023-01-13 21:12:21 Test Item Value Reference Range Interpretation Comments POCT GLU (test code = 3759022515) 167 mg/dL 70-110 H Lab Interpretation (test code = Abnormal 13485-0) [facility] South[facility]ansthoracic echo (TTE)2023-01-13 20:27:47 Test Item Value Reference Range Interpretation Comments Height (test code = 62 in 5209630393) Weight (test code = 122 lbs 6770752922) Systolic BP (test code = 95 mmHg 6155732264) Diastolic BP (test code 55 mmHg = 7743319219) Heart Rate (test code = 79 bpm 0782609373) BSA (test code = 1.55 m2 9082811446) LVIDD (test code = 4.00 cm 5530979142) Left Ventricular End 71.1 mL Diastolic Volume by Teichholz Method (test code = 7782745) IVS (test code = 0.88 cm 1490404645) Interventricular Septum 0.88 cm Diastolic Thickness by 2D (test code = 5844114) LVPWD (test code = 0.93 cm 6441509347) PW (test code = 0.93 cm 0.6-1.3 4332496022) EF(Teich) (test code = 65.10 % 6752763896) LVIDS (test code = 2.60 cm 9640998299) Left Ventricular End 24.8 mL Systolic Volume by Teichholz Method (test code = 9660987) FS (test code = 35 % 5083558366) EF - 2D (test code = 65.10 % 33545388) Ao root diam (test code 2.26 cm = 4096211118) Aortic root (test code = 2.26 cm 5527754553) Ao root annulus (test 2.26 cm code = 6733576744) LA size (test code = 3.5 cm 7973071143) LVOT diameter (test code 1.76 cm = 6726947955) LVOT area (test code = 2.44 cm2 5563244703) TR Peak Claritza (test code = 230.8 cm/s 9927889606) Triscuspid Valve 21.3 mmHg Regurgitation Peak Gradient (test code = 7870399757) E wave decelartion time 0.20 s (test code = 1427040337) MV Peak E Claritza (test code 71.8 cm/s = 9104797355) MV Peak A Claritza (test code 57.7 cm/s = 6988913708) E/A ratio (test code = 1.24 ratio 8134833341) MV Prop V (test code = 116.00 cm/s 8839648239) LAV(MOD-sp4) (test code 46.80 mL = 8202385129) LVOT stroke volume (test 47.00 cm3 code = 5335309754) LVOT peak claritza (test code 105.7 cm/s = 4469023046) LVOT mn grad (test code 2.0 mmHg = 4661228897) AV LVOT peak gradient 4.5 mmHg (test code = 4990622495) LVOT peak VTI (test code 19.3 cm = 8345351268) LV V1 mean (test code = 65.10 cm/s 5749997137) Tapse (test code = 2.00 cm 7158627453) LA Volume Index (BP) 34.2 mL/m2 (test code = 7839888473) LA volume (BP) (test 52.9 mL code = 4347347942) LAV(MOD-sp2) (test code 47.90 mL = 1893573694) A4C EF (test code = 43.60 % 5444874998) EF(sp4-el) (test code = 42.80 % 8806787653) SV(MOD-sp4) (test code = 42.20 mL 3586469983) SV(sp4-el) (test code = 42.80 mL 0799199443) LV Diastolic Volume (BP) 84.6 mL (test code = 7832179879) A2C EF (test code = 76.10 % 9231616537) EF(MOD-bp) (test code = 59.10 % 1060277218) EF(sp2-el) (test code = 77.80 % 2411096001) LV Systolic Volume (BP) 34.6 mL (test code = 3371637382) SV(MOD-bp) (test code = 50.00 mL 6354306515) SV(MOD-sp2) (test code = 53.00 mL 0754557845) EF (test code = 59 4036858230) Left Ventricular Stroke 50.0 mL Volume by 2-D Biplane-MOD (test code = 6924998) LV Diastolic Volume 54.6 mL/m2 Index (BP) (test code = 3459855161) LV Systolic Volume Index 22.3 mL/m2 (BP) (test code = 6672479848) PV PHT (test code = 158.6 ms 0184247000) Radiology Study observation (narrative) (test code = 32710-4) ALESHA (test code = ALESHA) ?Left?Ventricle: Left ventricle size is normal. Normal wall thickness. Normal wall motion. Normal systolic function with a visually estimated EF of 55 - 60%. EF by 2D Gallagher biplane is 59%. Normal diastolic function. ?Right?Ventricle: Right ventricle size is normal. Normal systolic function. ?Left?Atrium: Left atrium is mildly dilated. Left atrium volume index is 34.2 mL/m2. ?Tricuspid?Valve: Mild to moderate transvalvular regurgitation. Right ventricular systolic pressure is 25-30 mmHg. No stenosis. ?IVC/SVC: IVC diameter is less than or equal to 21 mm and decreases less than 50% during inspiration; therefore the estimated right atrial pressure is intermediate (~8 mmHg). Ryan Barajas MD Left VentricleLeft ventricle size is normal. Normal wall thickness. Normal wall motion. Normal systolic function with a visually estimated EF of 55 - 60%. EF by 2D Gallagher biplane is 59%. Normal diastolic function.Right VentricleRight ventricle size is normal. Normal systolic function.Left AtriumLeft atrium is mildly dilated. Left atrium volume index is 34.2 mL/m2.Right AtriumRight atrium size is normal.IVC/SVCIVC diameter is less than or equal to 21 mm and decreases less than 50% during inspiration; therefore the estimated right atrial pressure is intermediate (~8 mmHg).Mitral ValveMitral valve structure is normal. Trace transvalvular regurgitation. No stenosis.Tricuspid ValveTricuspid valve structure is normal. Mild to moderate transvalvular regurgitation. Right ventricular systolic pressure is 25-30 mmHg. No stenosis.Aortic ValveTricuspid. Trace transvalvular regurgitation. No evidence of aortic stenosis.Pulmonic ValveNot well visualized. Mild to moderate transvalvular regurgitation. No stenosis.Ascending AortaNormal sized annulus and sinus of Valsalva.PericardiumT he pericardium is normal. No pericardial effusion.Study DetailsStudy quality was adequate. A complete echocardiogram was performed using 2D, color flow Doppler and spectral Doppler. 5 mL of Lumason ultrasound enhancing agent used. [facility] GLUCOSE (AUTOMATED)2023-01-13 19:52:52 Test Item Value Reference Range Interpretation Comments POCT GLU (test code = 7481473517) 158 mg/dL 70-110 H Lab Interpretation (test code = Abnormal 22066-7) [facility] DRUG (IMMUNOASSAY) - COMPREHENSIVE DRUG [id number] 18:56:40 Test Item Value Reference Range Interpretation Comments CHANTE S (test code = Negative Negative 0981369727) BENZO S (test code = Negative Negative 7512442122) TRICYCLIC (test code = Negative Negative 4234339901) ALESHA (test code = ALESHA) Serum Drug Screen Cutoff Ranges Barbiturates ? ? - 3 mcg/mLBenzodiazepines ?- 50 ng/mLTCA ?- 300 ng/mL Test developed and characteristics determined by [facility] Laboratory Services. The results are to be used only for medical (i.e., treatment) purposes. Unconfirmed screening results must not be used for non-medical purposes (e.g., employment testing, legal testing). Lab Interpretation Normal (test code = 61852-7) [facility] DRUG (IMMUNOASSAY) - COMPREHENSIVE DRUG [id number] 18:56:40 Test Item Value Reference Range Interpretation Comments CHANTE S (test code = Negative Negative 7426622570) BENZO S (test code = Negative Negative 0672065761) TRICYCLIC (test code = Negative Negative 8963042508) ALESHA (test code = ALESHA) Serum Drug Screen Cutoff Ranges Barbiturates ? ? - 3 mcg/mLBenzodiazepines ?- 50 ng/mLTCA ?- 300 ng/mL Test developed and characteristics determined by [facility] Services. The results are to be used only for medical (i.e., treatment) purposes. Unconfirmed screening results must not be used for non-medical purposes (e.g., employment testing, legal testing). Lab Interpretation Normal (test code = 03146-6) [facility] DRUG (IMMUNOASSAY) - COMPREHENSIVE DRUG [id number] 18:56:40 Test Item Value Reference Range Interpretation Comments CHANTE S (test code = Negative Negative 3338734794) BENZO S (test code = Negative Negative 2839847129) TRICYCLIC (test code = Negative Negative 7999421161) ALESHA (test code = ALESHA) Serum Drug Screen Cutoff Ranges Barbiturates ? ? - 3 mcg/mLBenzodiazepines ?- 50 ng/mLTCA ?- 300 ng/mL Test developed and characteristics determined by [facility] Services. The results are to be used only for medical (i.e., treatment) purposes. Unconfirmed screening results must not be used for non-medical purposes (e.g., employment testing, legal testing). Lab Interpretation Normal (test code = 86063-2) [facility] METABOLIC PANEL (NA, K, CL, CO2, GLUCOSE, BUN, CREATININE, CA)2023-01-13 18:56:30 Test Item Value Reference Range Interpretation Comments NA (test code = 139 mmol/L 135-145 4917995944) K (test code = 3.9 mmol/L 3.5-5.0 2790664852) CL (test code = 110 mmol/L 98-108 H 7745787283) CO2 TOTAL (test code = 15 mmol/L 23-31 L 5030157458) AGAP (test code = 14 2-16 1589443920) BUN (test code = 18 mg/dL 7-23 3546360395) GLUCOSE (test code = 141 mg/dL 70-110 H 6872504425) CREATININE (test code = 1.24 mg/dL 0.60-1.25 3554700690) CALCIUM (test code = 8.0 mg/dL 8.6-10.6 L 6706954955) eGFR (test code = 58.7 mL/min/1.73m2 8558336784) ALESHA (test code = ALESHA) Association of Glomerular Filtration Rate (GFR) and Staging of Kidney Disease* + --+ --+ ------+| GFR (mL/min/1.73 m2) ?| With Kidney Damage ?| ?Without Kidney Damage+ --------+ --------+ +| ?>90 ?| ?Stage one ?| ? Normal ?+ ---+ ---+ -------+| ?60-89 ?| ?Stage two ?| ? Decreased GFR ? + --+ --+ ------+| ?30-59 ?| ?Stage three ?| ? Stage three ? + --+ --+ ------+| ?15-29 ?| ?Stage four ? | ? Stage four ?+ ---+ ---+ -------+| ?<15 (or dialysis) ? ?| ?Stage five ? | ? Stage five ?+ ---+ ---+ -------+ *Each stage assumes the associated GFR level has been in effect for at least three months. ?Stages 1 to 5, with or without kidney disease, indicate chronic kidney disease. Notes: Determination of stages one and two (with eGFR >59mL/min/1.73 m2) requires estimation of kidney damage for at least three months as defined by structural or functional abnormalities of the kidney, manifested by either:Pathological abnormalities or Markers of kidney damage (including abnormalities in the composition of the blood or urine or abnormalities in imaging tests). Lab Interpretation Abnormal (test code = 04587-1) [facility]ANTIT[facility]IVE NAAT 2023-01-13 18:28:21 Test Item Value Reference Range Interpretation Comments HCV Quantitative NAAT 5.73 Not Detected log - log IU/mL (test code IU/mL = 72099-5) HCV Quantitative NAAT 059136 Not Detected - IU/mL (test code = IU/mL 35868-9) HCV Quantitative Detected Not Detected A Interpretation (test code = 0998910326) ALESHA (test code = ALESHA) The Aptima HCV Quant Dx assay is an FDA-approved real-time dispatch clerk-mediated amplification (TMA) test used for both detection and quantitation of hepatitis C virus (HCV) RNA in human serum and plasma from HCV-infected individuals. ?It is intended for use as an aid in the diagnosis of active HCV infection and the management of HCV-infected patients undergoing HCV antiviral drug therapy. ?It is not approved for use as a screening test for the presence of HCV RNA in blood or blood products. The quantitative range of this assay is 1.00 - 8.00 log IU/mL or 10 - 100,000,000 IU/mL. An interpretation of "Not Detected" does not rule out the presence of inhibitors in the patient specimen or HCV RNA concentration below the level of detection of the test. ?Care should be taken when interpreting any single viral load determination. Detected, not Quantifiable: HCV RNA detected, but at a level below 10 IU/mL (1.0 log IU/mL). ?HCV RNA concentration is below the lower limit of quantitation of the assay. Indeterminate: Error indicated in the generation of the result. ?Please submit a new specimen for repeat testing if clinically indicated. Lab Interpretation Abnormal (test code = 16690-7) [facility] C VIRUS (HCV) BY QUANTITATIVE NAAT 2023-01-13 18:28:21 Test Item Value Reference Range Interpretation Comments HCV Quantitative NAAT 5.73 Not Detected log - log IU/mL (test code IU/mL = 35515-2) HCV Quantitative NAAT 577277 Not Detected - IU/mL (test code = IU/mL 02106-6) HCV Quantitative Detected Not Detected A Interpretation (test code = 3297100147) ALESHA (test code = ALESHA) The Aptima HCV Quant Dx assay is an FDA-approved real-time dispatch clerk-mediated amplification (TMA) test used for both detection and quantitation of hepatitis C virus (HCV) RNA in human serum and plasma from HCV-infected individuals. ?It is intended for use as an aid in the diagnosis of active HCV infection and the management of HCV-infected patients undergoing HCV antiviral drug therapy. ?It is not approved for use as a screening test for the presence of HCV RNA in blood or blood products. The quantitative range of this assay is 1.00 - 8.00 log IU/mL or 10 - 100,000,000 IU/mL. An interpretation of "Not Detected" does not rule out the presence of inhibitors in the patient specimen or HCV RNA concentration below the level of detection of the test. ?Care should be taken when interpreting any single viral load determination. Detected, not Quantifiable: HCV RNA detected, but at a level below 10 IU/mL (1.0 log IU/mL). ?HCV RNA concentration is below the lower limit of quantitation of the assay. Indeterminate: Error indicated in the generation of the result. ?Please submit a new specimen for repeat testing if clinically indicated. Lab Interpretation Abnormal (test code = 35709-5) [facility] (HCV) BY QUANTITATIVE NAAT 2023-01-13 18:28:21 Test Item Value Reference Range Interpretation Comments HCV Quantitative NAAT 5.73 Not Detected log - log IU/mL (test code IU/mL = 77829-3) HCV Quantitative NAAT 657339 Not Detected - IU/mL (test code = IU/mL 52125-6) HCV Quantitative Detected Not Detected A Interpretation (test code = 9917971062) ALESHA (test code = ALESHA) The Aptima HCV Quant Dx assay is an FDA-approved real-time dispatch clerk-mediated amplification (TMA) test used for both detection and quantitation of hepatitis C virus (HCV) RNA in human serum and plasma from HCV-infected individuals. ?It is intended for use as an aid in the diagnosis of active HCV infection and the management of HCV-infected patients undergoing HCV antiviral drug therapy. ?It is not approved for use as a screening test for the presence of HCV RNA in blood or blood products. The quantitative range of this assay is 1.00 - 8.00 log IU/mL or 10 - 100,000,000 IU/mL. An interpretation of "Not Detected" does not rule out the presence of inhibitors in the patient specimen or HCV RNA concentration below the level of detection of the test. ?Care should be taken when interpreting any single viral load determination. Detected, not Quantifiable: HCV RNA detected, but at a level below 10 IU/mL (1.0 log IU/mL). ?HCV RNA concentration is below the lower limit of quantitation of the assay. Indeterminate: Error indicated in the generation of the result. ?Please submit a new specimen for repeat testing if clinically indicated. Lab Interpretation Abnormal (test code = 08115-2) [facility] GLUCOSE (AUTOMATED)2023-01-13 17:49:50 Test Item Value Reference Range Interpretation Comments POCT GLU (test code = 6991162907) 156 mg/dL 70-110 H Lab Interpretation (test code = Abnormal 19564-0) [facility] GLUCOSE (AUTOMATED)2023-01-13 12:58:08 Test Item Value Reference Range Interpretation Comments POCT GLU (test code = 2446057310) 98 mg/dL 70-110 Lab Interpretation (test code = Normal 30910-7) [facility] GLUCOSE (AUTOMATED)2023-01-13 10:24:20 Test Item Value Reference Range Interpretation Comments POCT GLU (test code = 4884952098) 118 mg/dL 70-110 H Lab Interpretation (test code = Abnormal 65742-5) [facility] GLUCOSE (AUTOMATED)2023-01-13 10:10:51 Test Item Value Reference Range Interpretation Comments POCT GLU (test code = 6944924539) 53 mg/dL 70-110 L Lab Interpretation (test code = Abnormal 70184-8) [facility] METABOLIC PANEL (NA, K, CL, CO2, GLUCOSE, BUN, CREATININE, CA)2023-01-13 09:30:28 Test Item Value Reference Range Interpretation Comments NA (test code = 139 mmol/L 135-145 8143358836) K (test code = 2.9 mmol/L 3.5-5.0 LL 4240825623) CL (test code = 107 mmol/L 98-108 7682066038) CO2 TOTAL (test code = 12 mmol/L 23-31 L 7035640539) AGAP (test code = 20 2-16 H 3890180769) BUN (test code = 16 mg/dL 7-23 7338876394) GLUCOSE (test code = 55 mg/dL 70-110 L 5990448477) CREATININE (test code = 1.22 mg/dL 0.60-1.25 0000839600) CALCIUM (test code = 8.2 mg/dL 8.6-10.6 L 4435485481) eGFR (test code = 59.8 mL/min/1.73m2 9240512950) ALESHA (test code = ALESHA) Association of Glomerular Filtration Rate (GFR) and Staging of Kidney Disease* + --+ --+ ------+| GFR (mL/min/1.73 m2) ?| With Kidney Damage ?| ?Without Kidney Damage+ --------+ --------+ +| ?>90 ?| ?Stage one ?| ? Normal ?+ ---+ ---+ -------+| ?60-89 ?| ?Stage two ?| ? Decreased GFR ? + --+ --+ ------+| ?30-59 ?| ?Stage three ?| ? Stage three ? + --+ --+ ------+| ?15-29 ?| ?Stage four ? | ? Stage four ?+ ---+ ---+ -------+| ?<15 (or dialysis) ? ?| ?Stage five ? | ? Stage five ?+ ---+ ---+ -------+ *Each stage assumes the associated GFR level has been in effect for at least three months. ?Stages 1 to 5, with or without kidney disease, indicate chronic kidney disease. Notes: Determination of stages one and two (with eGFR >59mL/min/1.73 m2) requires estimation of kidney damage for at least three months as defined by structural or functional abnormalities of the kidney, manifested by either:Pathological abnormalities or Markers of kidney damage (including abnormalities in the composition of the blood or urine or abnormalities in imaging tests). Lab Interpretation Abnormal (test code = 06458-5) [facility] 09:25:03 Test Item Value Reference Range Interpretation Comments MAGNESIUM (test code = 6211229562) 1.7 mg/dL 1.7-2.4 Lab Interpretation (test code = Normal 10761-2) [facility] WITH [id number] 09:24:53 Test Item Value Reference Range Interpretation Comments WBC (test code = 11.09 See_Comment H [Automated 6690-2) message] The sy stem which generated this result transmitted reference range : 4.20 - 10.70 10*3/?L. The reference range was not used to interpret this result as normal/abnormal . RBC (test code = 2.53 See_Comment L [Automated 789-8) message] The sy stem which generated this result transmitted reference range : 4.26 - 5.52 10*6/?L. The reference range was not used to interpret this result as normal/abnormal . HGB (test code = 8.2 g/dL 12.2-16.4 L 718-7) HCT (test code = 24.3 % 38.4-49.3 L 4544-3) MCV (test code = 96.0 fL 81.7-95.6 H 787-2) MCH (test code = 32.4 pg 26.1-32.7 785-6) MCHC (test code = 33.7 g/dL 31.2-35.0 786-4) RDW-SD (test code = 53.9 fL 38.5-51.6 H 67047-8) RDW-CV (test code = 15.4 % 12.1-15.4 788-0) PLT (test code = 90 See_Comment L [Automated 777-3) message] The sy stem which generated this result transmitted reference range : 150 - 328 10*3/ ?L. The reference r roland was not used to interpret this result as normal/abnormal . MPV (test code = 10.1 fL 9.8-13.0 98580-7) IPF % (test code = 3.9 % 1.2-10.7 Platelet count 3558476557) measured by fluorescence method. NRBC/100 WBC (test 0.0 See_Comment [Automat ed code = 9569040010) message] The system which generated this result transmitted reference range : 0.0 - 10.0 /100 WBCs. The refer ence range was not u sed to interpret th is result as normal/abnormal . NRBC x10^3 (test code See_Comment [Auto mated = 7422239721) message] The s ystem which generated this result transmitted reference range : 10*3/?L. The reference range was not used to interpret this result as normal/abnormal . SEG % (test code = 38 % 33-76 50729-9) BAND % (test code = 45 % 0-1 H 43366-7) META % (test code = 5 % <=0 H 77564-7) LYMPH % (test code = 10 % 14-54 L 08593-8) MONO % (test code = 2 % 0-4 78393-2) ANC (test code = 9.20 10*3/uL 1.99-6.95 H 753-4) BASIA CELLS (test code 3+ See_Comment A [Auto mated = 2866-9) message] The sy stem which generated this result transmitted reference range : (none). The reference range was not used to interpret this result as normal/abnormal . Lab Interpretation Abnormal (test code = 39028-5) [facility] GLUCOSE (AUTOMATED)2023-01-13 06:48:17 Test Item Value Reference Range Interpretation Comments POCT GLU (test code = 6679721684) 90 mg/dL 70-110 Lab Interpretation (test code = Normal 59533-3) [facility] GLUCOSE (AUTOMATED)2023-01-13 06:30:17 Test Item Value Reference Range Interpretation Comments POCT GLU (test code = 5314882739) 49 mg/dL 70-110 LL Lab Interpretation (test code = Abnormal 92626-4) [facility] + LACTIC [id number] 06:11:24 Test Item Value Reference Range Interpretation Comments PH (test code = 7.28 7.32-7.42 L 1691305098) PCO2 GURMEET (test code = 22 See_Comment L [Auto mated [id number]) message] The sy stem which generated this result transmitted reference range : 41 - 51 mmHg. The reference range was not used to interpret this result as normal/abnormal . PO2 GURMEET (test code = 30 See_Comment [Autom ated 3447136578) message] The sy stem which generated this result transmitted reference range : 25 - 40 mmHg. The reference range was not used to interpret this result as normal/abnormal . HCO3 GURMEET (test code = 10 See_Comment L [Auto mated 8771312603) message] The sy stem which generated this result transmitted reference range : 24 - 28 mEq/L. The reference range was not used to interpret this result as normal/abnormal . AC VBE(BEAKER) (test -14.6 mEq/L code = 2827639663) THB GURMEET (test code = 10.3 g/dL 13.5-18.0 L 9491209012) %O2HB GURMEET (test code = 55.6 % 52.0-63.0 6638931464) %COHB GURMEET (test code = 0.4 % 0.0-1.5 5640141507) %METHB GURMEET (test code 0.1 % 0.4-1.5 L = 3646808586) VOL%O2 GURMEET (test code 8.1 % 6.0-12.0 = 4101214142) NA (test code = 134 mmol/L 135-145 L 1642344138) K+ (test code = 3.7 mmol/L 3.5-5.0 2715795161) AC CA IONZ (test code 4.60 mg/dL 4.50-5.30 = 1772895227) GLUCOSE (test code = 39 mg/dL 70-110 LL 2521155290) LACTIC ACID (test code 10.56 mmol/L 0.50-2.20 H = 6476829592) Lab Interpretation Abnormal (test code = 19968-6) [facility] + LACTIC [id number] 06:11:24 Test Item Value Reference Range Interpretation Comments PH (test code = 7.28 7.32-7.42 L 3090007981) PCO2 GURMEET (test code = 22 See_Comment L [Auto mated 9362127857) message] The sy stem which generated this result transmitted reference range : 41 - 51 mmHg. The reference range was not used to interpret this result as normal/abnormal . PO2 GURMEET (test code = 30 See_Comment [Autom ated 2975408233) message] The sy stem which generated this result transmitted reference range : 25 - 40 mmHg. The reference range was not used to interpret this result as normal/abnormal . HCO3 GURMEET (test code = 10 See_Comment L [Auto mated 3185521756) message] The sy stem which generated this result transmitted reference range : 24 - 28 mEq/L. The reference range was not used to interpret this result as normal/abnormal . AC VBE(BEAKER) (test -14.6 mEq/L code = 3710312779) THB GURMEET (test code = 10.3 g/dL 13.5-18.0 L 8996422415) %O2HB GURMEET (test code = 55.6 % 52.0-63.0 7495793118) %COHB GURMEET (test code = 0.4 % 0.0-1.5 4515199097) %METHB GURMEET (test code 0.1 % 0.4-1.5 L = 4009073715) VOL%O2 GURMEET (test code 8.1 % 6.0-12.0 = 3633621458) NA (test code = 134 mmol/L 135-145 L 0110642454) K+ (test code = 3.7 mmol/L 3.5-5.0 7055564979) AC CA IONZ (test code 4.60 mg/dL 4.50-5.30 = 1634441419) GLUCOSE (test code = 39 mg/dL 70-110 LL 5539294332) LACTIC ACID (test code 10.56 mmol/L 0.50-2.20 H = 6385926402) Lab Interpretation Abnormal (test code = 07618-1) [facility] + LACTIC [id number] 06:11:24 Test Item Value Reference Range Interpretation Comments PH (test code = 7.28 7.32-7.42 L 9336319016) PCO2 GURMEET (test code = 22 See_Comment L [Auto mated 2594026124) message] The sy stem which generated this result transmitted reference range : 41 - 51 mmHg. The reference range was not used to interpret this result as normal/abnormal . PO2 GURMEET (test code = 30 See_Comment [Autom ated 7879063977) message] The sy stem which generated this result transmitted reference range : 25 - 40 mmHg. The reference range was not used to interpret this result as normal/abnormal . HCO3 GURMEET (test code = 10 See_Comment L [Auto mated 8331832160) message] The sy stem which generated this result transmitted reference range : 24 - 28 mEq/L. The reference range was not used to interpret this result as normal/abnormal . AC VBE(BEAKER) (test -14.6 mEq/L code = 1529211866) THB GURMEET (test code = 10.3 g/dL 13.5-18.0 L 3899325640) %O2HB GURMEET (test code = 55.6 % 52.0-63.0 7077498249) %COHB GURMEET (test code = 0.4 % 0.0-1.5 1930440508) %METHB GURMEET (test code 0.1 % 0.4-1.5 L = 5819375948) VOL%O2 GURMEET (test code 8.1 % 6.0-12.0 = 7767020748) NA (test code = 134 mmol/L 135-145 L 6186727823) K+ (test code = 3.7 mmol/L 3.5-5.0 4036491116) AC CA IONZ (test code 4.60 mg/dL 4.50-5.30 = 1620776485) GLUCOSE (test code = 39 mg/dL 70-110 LL 6164940428) LACTIC ACID (test code 10.56 mmol/L 0.50-2.20 H = 7316034147) Lab Interpretation Abnormal (test code = 33259-0) [facility] [id number] 04:54:59 Test Item Value Reference Range Interpretation Comments HCV Ab (test code = Positive 48592-3) HCV 23.20 Semi-Quantitative (test code = 10788-4) APRI (test code = 0.696 9753455101) ALESHA (test code = Positive for HCV antibody. ALESHA) This specimen has been reflexed to Hepatitis C Virus (HCV) by Quantitative NAAT and submitted to the Microbiology laboratory. ?A report will be issued by that laboratory. ?If any questions, contact the Clinical Chemistry Director clinical documentation nurse at [phone].APRI score < 0.5: Suggestive of little to no fibrosisAPRI score > 1.5: Suggestive of moderate to severe fibrosisAPRI score > 2.0: Highly suggestive of cirrhosis. [facility] [id number] 04:54:59 Test Item Value Reference Range Interpretation Comments HCV Ab (test code = Positive 00544-0) HCV 23.20 Semi-Quantitative (test code = 55539-8) APRI (test code = 0.696 5533975501) ALESHA (test code = Positive for HCV antibody. ALESHA) This specimen has been reflexed to Hepatitis C Virus (HCV) by Quantitative NAAT and submitted to the Microbiology laboratory. ?A report will be issued by that laboratory. ?If any questions, contact the Clinical Chemistry Director clinical documentation nurse at [phone].APRI score < 0.5: Suggestive of little to no fibrosisAPRI score > 1.5: Suggestive of moderate to severe fibrosisAPRI score > 2.0: Highly suggestive of cirrhosis. [facility] [id number] 04:54:59 Test Item Value Reference Range Interpretation Comments HCV Ab (test code = Positive 40322-2) HCV 23.20 Semi-Quantitative (test code = 61710-6) APRI (test code = 0.696 9669646878) ALESHA (test code = Positive for HCV antibody. ALESHA) This specimen has been reflexed to Hepatitis C Virus (HCV) by Quantitative NAAT and submitted to the Microbiology laboratory. ?A report will be issued by that laboratory. ?If any questions, contact the Clinical Chemistry Director clinical documentation nurse at [phone].APRI score < 0.5: Suggestive of little to no fibrosisAPRI score > 1.5: Suggestive of moderate to severe fibrosisAPRI score > 2.0: Highly suggestive of cirrhosis. [facility] (IGG AND IGM)2023-01-13 04:52:21 Test Item Value Reference Range Interpretation Comments HAV Total (test code Positive = 3694345579) HAVT 0.04 Semi-Quantitative (test code = 7375592656) ALESHA (test code = ALESHA) Indicates past or present infection with HAV or exposure to HAV due to vaccination. [facility] (IGG AND IGM)2023-01-13 04:52:21 Test Item Value Reference Range Interpretation Comments HAV Total (test code Positive = 5000652539) HAVT 0.04 Semi-Quantitative (test code = 3735789310) ALESHA (test code = ALESHA) Indicates past or present infection with HAV or exposure to HAV due to vaccination. [facility] (IGG AND IGM)2023-01-13 04:52:21 Test Item Value Reference Range Interpretation Comments HAV Total (test code Positive = 0042792164) HAVT 0.04 Semi-Quantitative (test code = 4475367552) ALESHA (test code = ALESHA) Indicates past or present infection with HAV or exposure to HAV due to vaccination. [facility] SURFACE [id number] 04:42:03 Test Item Value Reference Range Interpretation Comments HBsAB (test code = Negative 3460262004) HBsAb 2.90 mIU/mL Semi-Quantitative (test code = 8030359859) ALESHA (test code = Interpretation: ALESHA) ?Hepatitis B Surface Antibody ? Negative - Patient is considered to be not immune to infection with HBV. ? ? Positive - Anti-HBs detected at greater than or equal to 12 mIU/mL. ?Patient is considered to be immune to infection with HBV. ? [facility] [id number] 04:42:03 Test Item Value Reference Range Interpretation Comments HBsAB (test code = Negative 6568035634) HBsAb 2.90 mIU/mL Semi-Quantitative (test code = 2363386463) ALESHA (test code = Interpretation: ALESHA) ?Hepatitis B Surface Antibody ? Negative - Patient is considered to be not immune to infection with HBV. ? ? Positive - Anti-HBs detected at greater than or equal to 12 mIU/mL. ?Patient is considered to be immune to infection with HBV. ? [facility] [id number] 04:42:03 Test Item Value Reference Range Interpretation Comments HBsAB (test code = Negative 4299994309) HBsAb 2.90 mIU/mL Semi-Quantitative (test code = 2164334739) ALESHA (test code = Interpretation: ALESHA) ?Hepatitis B Surface Antibody ? Negative - Patient is considered to be not immune to infection with HBV. ? ? Positive - Anti-HBs detected at greater than or equal to 12 mIU/mL. ?Patient is considered to be immune to infection with HBV. ? [facility] [id number] 04:30:38 Test Item Value Reference Range Interpretation Comments HBCM 0.11 Semi-Quantitative (test code = 49690-3) ALESHA (test code = Biotin has been reported ALESHA) to cause a negative bias, interpret results relative to patient's use of biotin. [facility] [id number] 04:30:38 Test Item Value Reference Range Interpretation Comments HBCM 0.11 Semi-Quantitative (test code = 22430-3) ALESHA (test code = Biotin has been reported ALESHA) to cause a negative bias, interpret results relative to patient's use of biotin. [facility] B CORE ANTIBODY [id number] 04:30:38 Test Item Value Reference Range Interpretation Comments HBCM 0.11 Semi-Quantitative (test code = 06789-2) ALESHA (test code = Biotin has been reported ALESHA) to cause a negative bias, interpret results relative to patient's use of biotin. [facility] 1/2 AG-AB WITH [id number] 04:29:58 Test Item Value Reference Range Interpretation Comments HIV 0.10 Negative Semi-quantitative (test code = 66425-2) ALESHA (test code = Non-reactive for HIV-1 ALESHA) antigen and HIV-1/HIV-2 antibodies. ?No laboratory evidence of HIV infection. ?Repeat in 2-4 weeks if acute HIV infection is suspected. [facility] 1/2 AG-AB WITH [id number] 04:29:58 Test Item Value Reference Range Interpretation Comments HIV 0.10 Negative Semi-quantitative (test code = 00518-8) ALESHA (test code = Non-reactive for HIV-1 ALESAH) antigen and HIV-1/HIV-2 antibodies. ?No laboratory evidence of HIV infection. ?Repeat in 2-4 weeks if acute HIV infection is suspected. [facility] 1/2 AG-AB WITH [id number] 04:29:58 Test Item Value Reference Range Interpretation Comments HIV 0.10 Negative Semi-quantitative (test code = 93230-9) ALESHA (test code = Non-reactive for HIV-1 ALESHA) antigen and HIV-1/HIV-2 antibodies. ?No laboratory evidence of HIV infection. ?Repeat in 2-4 weeks if acute HIV infection is suspected. [facility] B SURFACE [id number] 04:24:21 Test Item Value Reference Range Interpretation Comments HBsAg Semi-Quantitative (test code = 0.16 Negative 5195-3) [facility] B SURFACE [id number] 04:24:21 Test Item Value Reference Range Interpretation Comments HBsAg Semi-Quantitative (test code = 0.16 Negative 5195-3) [facility] B SURFACE [id number] 04:24:21 Test Item Value Reference Range Interpretation Comments HBsAg Semi-Quantitative (test code = 0.16 Negative 5195-3) [facility] (ALB, T.PRO, BILI T, BU/BC, ALT, AST, ALK, PHOS)2023-01-13 03:52:00 Test Item Value Reference Range Interpretation Comments TOTAL BILI (test code = 0977337917) 5.1 mg/dL 0.1-1.1 H BILI UNCON (test code = 2204645927) 1.6 mg/dL 0.1-1.1 H BILI CONJ (test code = 7841877009) 1.4 mg/dL 0.0-0.3 H T PROTEIN (test code = 7671582105) 5.0 g/dL 6.3-8.2 L ALBUMIN (test code = 4487177380) 2.3 g/dL 3.5-5.0 L ALK PHOS (test code = 7629632340) 50 U/L 34-122 ALTv (test code = 1742-6) 37 U/L 5-50 AST(SGOT) (test code = 4634278748) 39 U/L 13-40 Lab Interpretation (test code = Abnormal 78949-4) [facility] (ALB, T.PRO, BILI T, BU/BC, ALT, AST, ALK, PHOS)2023-01-13 03:52:00 Test Item Value Reference Range Interpretation Comments TOTAL BILI (test code = 5865744905) 5.1 mg/dL 0.1-1.1 H BILI UNCON (test code = 9902188464) 1.6 mg/dL 0.1-1.1 H BILI CONJ (test code = 1233332962) 1.4 mg/dL 0.0-0.3 H T PROTEIN (test code = 5052479479) 5.0 g/dL 6.3-8.2 L ALBUMIN (test code = 1105665409) 2.3 g/dL 3.5-5.0 L ALK PHOS (test code = 8330630584) 50 U/L 34-122 ALTv (test code = 1742-6) 37 U/L 5-50 AST(SGOT) (test code = 3977756723) 39 U/L 13-40 Lab Interpretation (test code = Abnormal 29445-6) [facility] (ALB, T.PRO, BILI T, BU/BC, ALT, AST, ALK, PHOS)2023-01-13 03:52:00 Test Item Value Reference Range Interpretation Comments TOTAL BILI (test code = 7817019937) 5.1 mg/dL 0.1-1.1 H BILI UNCON (test code = 7420185866) 1.6 mg/dL 0.1-1.1 H BILI CONJ (test code = 0085467024) 1.4 mg/dL 0.0-0.3 H T PROTEIN (test code = 7758794454) 5.0 g/dL 6.3-8.2 L ALBUMIN (test code = 7030406911) 2.3 g/dL 3.5-5.0 L ALK PHOS (test code = 0964601201) 50 U/L 34-122 ALTv (test code = 1742-6) 37 U/L 5-50 AST(SGOT) (test code = 8398828254) 39 U/L 13-40 Lab Interpretation (test code = Abnormal 72390-2) [facility] (NA, K, CL, CO2, Glucose, BUN, Creatinine, CA)2023-01-13 03:37:07 Test Item Value Reference Range Interpretation Comments NA (test code = 140 mmol/L 135-145 0157375215) K (test code = 3.2 mmol/L 3.5-5.0 L 8400923170) CL (test code = 109 mmol/L 98-108 H 5547447026) CO2 TOTAL (test code = 9 mmol/L 23-31 L 5742139483) AGAP (test code = 22 2-16 H 0660856500) BUN (test code = 15 mg/dL 7-23 6198310199) GLUCOSE (test code = 59 mg/dL 70-110 L 8815378187) CREATININE (test code = 1.29 mg/dL 0.60-1.25 H 5653376624) CALCIUM (test code = 7.9 mg/dL 8.6-10.6 L 3938919023) eGFR (test code = 56.1 mL/min/1.73m2 0039498214) ALESHA (test code = ALESHA) Association of Glomerular Filtration Rate (GFR) and Staging of Kidney Disease* + --+ --+ ------+| GFR (mL/min/1.73 m2) ?| With Kidney Damage ?| ?Without Kidney Damage+ --------+ --------+ +| ?>90 ?| ?Stage one ?| ? Normal ?+ ---+ ---+ -------+| ?60-89 ?| ?Stage two ?| ? Decreased GFR ? + --+ --+ ------+| ?30-59 ?| ?Stage three ?| ? Stage three ? + --+ --+ ------+| ?15-29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
[2023-03-29 14:51] LABS: Absolute Lymphocytes (CBC) 1.5 K/uL (0.7-4.9); Hematocrit 38.4 % (39.6-49.0); Lymphocytes % 17.2 % (15.3-44.8); MCV 94.3 fL (80-100); Platelets 112 thou/uL (152-406); RBC Red Blood Cell Count 4.07 M/uL (4.33-5.43)
[2023-03-29 15:05] LABS: Potassium 3.2 mEq/L (3.5-5.1)
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
[2023-03-29] MEDS ORDERED: FUROSEMIDE 20 MG TABLET ONE (16:44)
[2023-03-29 17:35] VITALS: TEMP 97.8; O2SAT 99
[2023-03-29 17:36] VITALS: BP 141/76
== END 2023-03-29 17:29 | disposition home or self-care (01) ==
LOC: ER 14:14
DX: S16.1XXA Strain of muscle, fascia and tendon at neck level, initial encounter (principal); R10.30 Lower abdominal pain, unspecified; S40.021A Contusion of right upper arm, initial encounter; R60.1 Generalized edema; V79.50XA Passenger on bus injured in collision with unspecified motor vehicles in traffic accident, initial encounter; Z88.6 Allergy status to analgesic agent
CPT/HCPCS: 36415; 72125; 74176; 80048; 85025; 99285